=== PATIENT | male | born 1980 | race Caucasian/White ===

== ENCOUNTER 2018-02-22 16:53 | Inpatient (IN) | payer MEDICAID ==
[~2018-02-22 16:53] MED LIST: IOPAMIDOL (ISOVUE-300) 100 ML BTL ONE
[2018-02-22] MEDS ORDERED: NS 1,000 ML IV ONE (17:12)
[2018-02-22] MEDS ORDERED: ONDANSETRON 4 MG/2 ML VIAL IVP ONE (17:12)
--- NOTE | 2018-02-22 17:12 | EDPHY ---
H & P Stated Complaint: SBO Time Seen by Provider: 02/22/18 17:03 HPI/ROS: CHIEF COMPLAINT: Crohn's disease, bowel obstruction HISTORY OF PRESENT ILLNESS: The patient presents the ED with 4 days of abdominal pain, vomiting, decreased appetite, lack of bowel movement/flatus. Patient has a history of Crohn's disease status post surgery for intra- abdominal abscess in [place]. The patient is currently on Humira and sulfasalazine. The patient saw his chief communications officer who ordered a CT scan which demonstrates a reported high-grade jejunal obstruction. The patient reports that his abdominal distention and pain have actually improved fairly significantly over the past day. They have not entirely resolved. The patient denies any fever, cough or congestion. The patient denies dysuria or additional complaints. REVIEW OF SYSTEMS: A comprehensive 10 point review of systems is otherwise negative aside from elements mentioned in the history of present illness. Source: Patient - Personal History Current Tetanus/Diphtheria Vaccine: Yes Current Tetanus Diphtheria and Acellular Pertussis (TDAP): Yes - Medical/Surgical History Hx Asthma: No Hx Chronic Respiratory Disease: No Hx Diabetes: No Hx Cardiac Disease: No Hx Renal Disease: No Hx Cirrhosis: No Hx Alcoholism: No Hx HIV/AIDS: No Hx Splenectomy or Spleen Trauma: No Other PMH: fistulizing crohn's, abdominal surgery 2016 - Social History Smoking Status: Current some day smoker - Physical Exam Exam: General Appearance: Alert, no distress Eyes: Pupils equal and round no pallor or injection ENT, Mouth: Mucous membranes moist Respiratory: There are no retractions, lungs are clear to auscultation Cardiovascular: Regular rate and rhythm Gastrointestinal: Hypoactive bowel sounds, tenderness to deep palpation, no peritoneal signs Neurological: A&O, normal motor function, normal sensory exam, normal cranial nerves Skin: Warm and dry, no rashes Musculoskeletal: Neck is supple nontender Extremities: symmetrical, full range of motion Psychiatric: Patient is oriented X 3, there is no agitation Constitutional: Initial Vital Signs Temperature (C) 37.4 C 02/22/18 17:00 Heart Rate 74 02/22/18 17:00 Respiratory Rate 16 02/22/18 17:00 Blood Pressure 121/88 H 02/22/18 17:00 O2 Sat (%) 98 02/22/18 17:00 O2 Delivery Mode Room Air Allergies/Adverse Reactions: piperacillin [From Zosyn] Allergy (Verified 02/22/18 16:58) tazobactam [From Zosyn] Allergy (Verified 02/22/18 16:58) Home Medications: Medication Instructions Recorded Adderall 10 MG (*) 02/22/18 Humira 02/22/18 Hydrocodone-Acetamin 10-300 mg 02/22/18 Protonix 02/22/18 Sulfasalazine 02/22/18 Medical Decision Making - Diagnostics Imaging Results: Imaging Impressions Abdomen CT 02/22/18 16:00 Impression: 1. High-grade mid to distal small bowel obstruction involving the majority of the jejunum. 2. No evidence of appendicitis, drainable abscess, or pneumoperitoneum. Findings and recommendations given to Kalyani Winchester PA-C, at 1650 hours, on February 22, 2018. Final report concurs with initial preliminary interpretation. The patient has been taken to the Emergency Department. Findings and recommendations discussed with Emergency Department physician, Dr. Costello, at 1652 hours, on February 22, 2018. Final report concurs with initial preliminary interpretation. ED Course/Re-evaluation: The patient had an IV established. He received a L of normal saline. He received 4 mg of IV Zofran. I reviewed the results of the patient's CT scan. Consultation was made with Dr. Margaret Castle from Gastroenterology. He advises admission to the hospital and IV steroids. He recommends 40 mg of Solu-Medrol 3 times a day. Consultation is made with Dr. Saxena from the hospitalist service who will admit the patient. I reviewed the patient's laboratory studies. The patient was seen in consultation by Gastroenterology in the ED. He will be admitted to medical-surgical floor bed. Differential Diagnosis: Differential diagnosis considered includes perforation, obstruction, dehydration , metabolic abnormality, intra-abdominal abscess - Data Points Laboratory Results: Laboratory Results 02/22/18 17:15 02/22/18 17:15 02/22/18 02/22/18 17:15 17:15 WBC 14.38 10^3/uL H 10^3/uL (3.80-9.50) RBC 5.17 10^6/uL 10^6/uL (4.40-6.38) Hgb 17.0 g/dL g/dL (13.7-17.5) Hct 47.8 % % (40.0-51.0) MCV 92.5 fL fL (81.5-99.8) MCH 32.9 pg pg (27.9-34.1) MCHC 35.6 g/dL g/dL (32.4-36.7) RDW 12.2 % % (11.5-15.2) Plt Count 307 10^3/uL 10^3/uL (150-400) MPV 9.1 fL fL (8.7-11.7) Neut % (Auto) Pending Lymph % (Auto) Pending Kingfisher % (Auto) Pending Eos % (Auto) Pending Baso % (Auto) Pending Nucleat RBC Rel Count Pending Absolute Neuts (auto) Pending Absolute Lymphs (auto) Pending Absolute Monos (auto) Pending Absolute Eos (auto) Pending Absolute Basos (auto) Pending Absolute Nucleated RBC Pending Immature Gran % Pending Immature Gran # Pending Platelet Estimate Pending Sodium 137 mEq/L mEq/L (135-145) Potassium 4.0 mEq/L mEq/L (3.5-5.2) Chloride 95 mEq/L L mEq/L (97-110) Carbon Dioxide 26 mEq/l mEq/l (22-31) Anion Gap 16 mEq/L mEq/L (8-16) BUN 16 mg/dL mg/dL (7-23) Creatinine 0.9 mg/dL mg/dL (0.7-1.3) Estimated GFR > 60 Glucose 83 mg/dL mg/dL (70-100) Calcium 9.6 mg/dL mg/dL (8.5-10.4) Medications Given: Discontinued Medications Sodium Chloride (Ns) 1,000 mls @ 0 mls/hr IV EDNOW ONE; Wide Open PRN Reason: Protocol Stop: 02/22/18 17:13 Last Admin: 02/22/18 17:20 Dose: 1,000 mls Ondansetron HCl (Zofran) 4 mg IVP EDNOW ONE Stop: 02/22/18 17:13 Last Admin: 02/22/18 17:20 Dose: 4 mg Departure - Departure Disposition: [facility] Acute Clinical Impression: Bowel obstruction, Crohns disease Condition: Good
[2018-02-22 17:22] LABS: PLATELET COUNT 307 10^3/uL (150-400)
[2018-02-22] MEDS ORDERED: methylPREDNISolone SOD SUCC 40 MG/ML VIAL IVP ONE (17:44)
[2018-02-22] MEDS ORDERED: ONDANSETRON DISINTEGRATING 4 MG TAB PO PRN (17:53)
[2018-02-22] MEDS ORDERED: METOCLOPRAMIDE 10 MG TAB PO PRN (17:53)
[2018-02-22] MEDS ORDERED: PROMETHAZINE HCL 25 MG TAB PO PRN (17:53)
--- NOTE | 2018-02-22 18:09 | GCON ---
[f rep st] CONSULTATION INPATIENT CONSULTATION NOTE REFERRING PHYSICIAN: Andres Montenegro MD REASON FOR CONSULTATION: Crohn disease and obstruction. HISTORY OF PRESENT ILLNESS: Briefly, the patient is a pleasant 37-year-old male with a past medical history significant for Crohn disease. His Crohn disease has been complicated in the past by fistula and abscesses. He is currently on sulfasalazine and Humira as an outpatient. Over the last many da ys, he has been noticing increasing degree of abdominal pain associated with mild nausea, decreased f latus, and difficulty with p.o. intake. He was seen in our outpatient office today and a CAT scan wa s recommended. He underwent that CAT scan and was noted to have a jejunal obstruction described as h igh-grade. Reports no fevers, chills or sweats. He has had no bloody stool. He has had no hematemesis. His prior Crohn disease management and surgery had taken place in [place]. ALLERGIES: Zosyn. MEDICINES: Outpatient: Sulfasalazine, Protonix, Humira, Adderall, and pain therapy. PAST MEDICAL HISTORY: Includes Crohn disease. FAMILY HISTORY: Negative for colon cancer to his knowledge. SOCIAL HISTORY: He smokes cigarettes rarely. Does not use drugs. REVIEW OF SYSTEMS: A complete 10-point review was undertaken, is negative except for those details d escribed in the History of Present Illness. PHYSICAL EXAM: GENERAL: This is a well-developed male, in no apparent distress. HEENT: Pupils are equal, round, reactive to light and accommodation. His mucous membranes are moist. RESPIRATORY: R eveals lungs are clear to auscultation. CARDIOVASCULAR: Normal with regular rate and rhythm. ABDOM EN: The patient has hypoactive bowel sounds with tenderness to deep palpation, although he has no pe ritoneal signs or rebound. NEUROLOGIC: Grossly nonfocal. SKIN: Warm and dry without lesions. MUSCULOSKELETAL: Reveals no arthritis. NECK: Supple and nontender. PSYCHIATRIC: Reveals normal m ood and affect. LABORATORY: White count of 14.38, hemoglobin is 17, with hematocrit of 47.8, platelet count of 307. Basic metabolic panel is currently pending. CT scan done today at 4 p.m. reveals high-grade mid to distal small bowel obstruction involving the m ajority of the jejunum. There is no abscess or fistula. There are multiple fluid-filled dilated loo ps of small bowel. IMPRESSION AND RECOMMENDATIONS: The patient appears to have a partial obstruction of the small bowel , likely related to underlying Crohn disease. If this is related to acute inflammation and activity of Crohn disease, it may respond to steroid therapies. At this point, I recommend the patient be adm itted to the hospital, left n.p.o., and that we start directed Crohn disease therapies with IV Solu-M edrol. Pending his clinical course, we will need to consider whether surgical intervention is requir ed. Hope to avoid this. /[id number]/MODL
[2018-02-22] MEDS: D5W 1/2 NS W/ 20 KCl/L 1,000 ML IV SCH (18:18)
--- NOTE | 2018-02-22 18:51 | PDGENHP ---
History and Physical - Chief Complaint Acute abdominal pain - History of Present Illness Primary care provider: Dr. Lizzeth Painting Primary medical advisor: Dr. Keon Saucedo HPI: 37-year-old male presenting with acute abdominal pain located in the right mid abdomen with associated nausea vomiting anorexia and constipation with onset of symptoms 4 days prior and constant duration thereafter. Patient reports that [place] has somewhat alleviated his symptoms but a become more pervasive over the last 3 days, with no bowel movement and no passage of gas during that interval. He has had very minimal oral intake as oral intake does seem to exacerbate his nausea and vomiting. The patient is unable to identify any clearly precipitating event prior to his onset of symptoms. The day of presentation, the patient was seen by physician property management assistant at [facility], an abdominal CT scan demonstrated high-grade bowel obstruction. He was advised to present to the emergency department. History Information - Allergies/Home Medication List Allergies/Adverse Reactions: piperacillin [From Zosyn] Allergy (Verified 02/22/18 18:30) tazobactam [From Zosyn] Allergy (Verified 02/22/18 18:30) Home Medications: Adalimumab [Humira] 0 mg INJ TH 02/22/18 [Last Taken 02/16/18] Dextroamphetamine/Amphetamine [Adderall 30 mg Tablet] 30 mg PO BID@09,13 PRN 12/11 [Last Taken 02/18/18] Herbals/Supplements -Info Only 1 ea PO DAILY 02/22/18 [Last Taken 02/18/18] Hydrocodone/Acetaminophen [[place] 5/325 (*)] 1 - 2 tab PO Q6H PRN 02/22/18 [Last Taken 02/22/18 05:00] Pantoprazole Sodium [Protonix 40mg (*)] 40 mg PO DAILY 02/22/18 [Last Taken 12/11] sulfaSALAzine [Azulfidine 500 MG (*)] 1,000 mg PO QID 02/22/18 [Last Taken 02/18] I have personally reviewed and updated: family history, medical history, social history, surgical history - Past Medical History Crohn's Disease (On weekly Humira, no recent steroids) Additional medical history: 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, surgical management as well as subsequent IR drainage, occurred at [facility] in [place] - Surgical History Additional surgical history: 2016 bowel surgery - Family History Additional family history: No venous thromboembolism, no inflammatory bowel disease - Social History Smoking Status: Current some day smoker Alcohol Use: Occasionally Drug Use: None Additional social history: Independent in ADLs Review of Systems Review of Systems: ROS: 10pt was reviewed & negative except for what was stated in HPI & below Gastrointestinal: Reports: vomitting, abdominal pain, constipation, nausea Physical Exam Physical Exam: Temp Pulse Resp BP Pulse Ox 37.2 C 72 16 126/81 H 94 02/22/18 18:32 02/22/18 18:32 02/22/18 18:32 02/22/18 18:32 02/22/18 18:32 Constitutional: no apparent distress, appears nourished, not in pain, uncomfortable Eyes: PERRL, anicteric sclera, EOMI Ears, Nose, Mouth, Throat: moist mucous membranes, hearing normal, ears appear normal, no oral mucosal ulcers Cardiovascular: regular rate and rhythym, no murmur, rub, or gallop, No edema Respiratory: no respiratory distress, no rales or rhonchi, clear to auscultation Gastrointestinal: tenderness (Right mid abdomen), No normoactive bowel sounds ( Hypoactive bowel sounds), No guarding, No distension Skin: warm, other (Well-healed abdominal incision site) Neurologic: AAOx3, No weakness, No facial droop Psychiatric: interacting appropriately, not anxious, not encephalopathic, thought process linear Lab Data & Imaging Review 02/22/18 17:15 02/22/18 17:15 WBC 14.38 10^3/uL (3.80-9.50) H 02/22/18 17:15 RBC 5.17 10^6/uL (4.40-6.38) 02/22/18 17:15 Hgb 17.0 g/dL (13.7-17.5) 02/22/18 17:15 Hct 47.8 % (40.0-51.0) 02/22/18 17:15 MCV 92.5 fL (81.5-99.8) 02/22/18 17:15 MCH 32.9 pg (27.9-34.1) 02/22/18 17:15 MCHC 35.6 g/dL (32.4-36.7) 02/22/18 17:15 RDW 12.2 % (11.5-15.2) 02/22/18 17:15 Plt Count 307 10^3/uL (150-400) 02/22/18 17:15 MPV 9.1 fL (8.7-11.7) 02/22/18 17:15 Sodium 137 mEq/L (135-145) 02/22/18 17:15 Potassium 4.0 mEq/L (3.5-5.2) 02/22/18 17:15 Chloride 95 mEq/L (97-110) L 02/22/18 17:15 Carbon Dioxide 26 mEq/l (22-31) 02/22/18 17:15 Anion Gap 16 mEq/L (8-16) 02/22/18 17:15 BUN 16 mg/dL (7-23) 02/22/18 17:15 Creatinine 0.9 mg/dL (0.7-1.3) 02/22/18 17:15 Estimated GFR > 60 02/22/18 17:15 Glucose 83 mg/dL (70-100) 02/22/18 17:15 Calcium 9.6 mg/dL (8.5-10.4) 02/22/18 17:15 Visualized and Interpreted imaging results: Yes Interpretation: CT of the abdomen demonstrating no abscess, no appendicitis, jejunal dilation with high-grade small-bowel obstruction in the mid to distal small bowel Assessment & Plan Assessment: 37-year-old male presents with acute small-bowel obstruction in the setting of Crohn's disease and possible acute flare Plan: 1. Small bowel obstruction. Acute, new problem this provider, further workup is indicated. Evidenced by high grade small bowel obstruction on CT of the abdomen with hypoactive bowel sounds, no passage of stool or flatus x3 days and symptomatic intolerance of oral intake -is possible that his small-bowel obstruction is secondary to either acute Crohn 's flare or bowel adhesions following a 2016 complicated intra-abdominal abscess surgery -ongoing abdominal reassessments, currently does not have a surgical abdomen -bowel rest, IV fluids, monitor serum electrolytes -supportive care with pain medications, antiemetics with Reglan first-line, Zofran second-line, Phenergan 3rd line -hold on surgical consultation at this time, but if patient's abdominal symptoms of all than worsen, low threshold to get surgical eval 2. Possible acute Crohn's disease flare. Elevated CRP 17 on evaluation of outside records including 02/21/2018 labs demonstrating new leukocytosis compared to labs from 01/26/2018 and no recent use of steroids -discussed with Dr. Marvin Montenegro, he has reported that the patient was seen in consultation by Dr. Margaret Castle, consultation reviewed, will initiate methylprednisone 40 mg q.8 hours and gauge effect -will continue Humira, patient's brother to bring in and patient will take his own home dosage -continue mesalamine Diet. NPO with IV fluids Prophylaxis. High risk patient given immobility and underlying autoimmune condition, Lovenox 40 Code. Full, brother is MD [employer] Disposition. Anticipated discharge uncertain this time, anticipated length stay is greater than 48 hr for reasonable medical necessity including acute small bowel obstruction with possible acute Crohn's disease flare being all inpatient criteria per [facility] Guidelines.
[2018-02-22] MEDS: sulfaSALAzine 500 MG TAB PO SCH (20:29)
[2018-02-22] MEDS: METOCLOPRAMIDE 10 MG/2 ML VIAL IVP PRN (23:29)
[2018-02-23] MEDS: methylPREDNISolone SOD SUCC 40 MG/ML VIAL IVP SCH ×3 (01:44→17:53)
[2018-02-23] MEDS: D5W 1/2 NS W/ 20 KCl/L 1,000 ML IV SCH ×2 (01:45→19:00)
[2018-02-23] MEDS: diphenhydrAMINE 25 MG CAP PO PRN (01:46)
[2018-02-23 04:59] LABS: PLATELET COUNT 268 10^3/uL (150-400)
[2018-02-23] MEDS: sulfaSALAzine 500 MG TAB PO SCH ×4 (05:21→20:17)
[2018-02-23] MEDS ORDERED: Herbals/Supplements -Info Only PO SCH (09:00)
[2018-02-23] MEDS ORDERED: ADDERALL 20 MG TAB PO PRN (09:00)
[2018-02-23] MEDS: PANTOPRAZOLE SODIUM 40 MG TAB PO SCH (09:08)
[2018-02-23] MEDS: ENOXAPARIN 40 MG/0.4 ML SYR SC SCH ×2 (09:21→11:08)
--- NOTE | 2018-02-23 09:52 | SOAPPROG ---
SOAP Progress Note Assessment/Plan: Assessment: 1. Crohns - complicated by obstruction, minimal improvement overnight - prior hx of abscess and fistula - n ohx of bowel resection Plan: 1. Crohns - continue npo x sips/chips/meds - continue IV solumedrol - given home dose humira today (pt has medication with him) - KUB to follow - monitor next 48-72hrs, and hope for improvement - will follow 02/23/18 09:46 Subjective: CC: crohns with obsturction S: no flatus overnight less pain today no appetite no fever no vomiting Objective: Vital Signs Temp Pulse Resp BP Pulse Ox 36.9 C 65 16 98/72 L 95 02/23/18 09:01 02/23/18 09:01 02/23/18 09:01 02/23/18 09:01 02/23/18 09:01 Laboratory Results 02/23/18 04:16 02/23/18 04:16 Physical Exam - Physical Exam General Appearance: alert EENT: PERRL/EOMI Neck: full range of motion Respiratory: lungs clear Cardiac/Chest: normal peripheral pulses, regular rate, rhythm Abdomen: normal bowel sounds, soft, No non-tender Skin: normal color Extremities: normal range of motion Neuro/Psych: no motor/sensory deficits ICD10 Worksheet Patient Problems: Problems Problem Status Onset Bowel obstruction Acute Crohns disease Acute
[2018-02-23] MEDS ORDERED: ADALIMUMAB 40 MG/0.8 ML INJ SC SCH ×2 (10:13→12:00)
--- NOTE | 2018-02-23 10:33 | PDMN ---
Medical Necessity Medical necessity: est los>2mn for acute SBO w/symptomatic intolerance of oral intake, and no stool or flatus x 3 days, r/t possible acute Crohn's flare vs bowel adhesions; admit for IVF, IV steroids, NPO; hx bowel fistula and abscess; per order and H&P 02/22/18
--- NOTE | 2018-02-23 10:47 | ASMTCMCOM ---
CM Note CM Note Notes: Spoke w/RN, anticipate pt will dc home w/support of family when medically stable, per RN, pt has supportive brother and mother. CM available for any changes. DC Plan: Independent Date Signed: 02/23/2018 10:46 AM Electronically Signed By:Margoth Doss RN
--- NOTE | 2018-02-23 13:36 | HOSPPROG ---
Hospitalist Progress Note Assessment/Plan: 37-year-old male presents with acute small-bowel obstruction in the setting of Crohn's disease and acute flare. First encounter, chart reviewed. Plan: 1. Small bowel obstruction. -ambulating, passing gas -is possible that his small-bowel obstruction is secondary to either acute Crohn 's flare or bowel adhesions following a 2016 complicated intra-abdominal abscess surgery -apprciate GI consult - continue IV solumedrol - given home dose humira today (pt has medication with him) - KUB to follow - monitor next 48-72hrs, and hope for improvement -bowel rest, IV fluids, monitor serum electrolytes -supportive care with pain medications, antiemetics with Reglan first-line, Zofran second-line, Phenergan 3rd line 2. Possible acute Crohn's disease flare. -Elevated CRP 17 -continue mesalamine Diet. NPO with IV fluids.Sips/chips Prophylaxis. Lovenox 40 Code. Full, brother is MD CONTE Disposition. Anticipated discharge uncertain this time, anticipated length stay is greater than 48 hr for reasonable medical necessity including acute small bowel obstruction with possible acute Crohn's disease flare Subjective: Feeling a bit better after walking. Still having pain and distention. Objective: Vital Signs Temp Pulse Resp BP Pulse Ox 37.2 C 77 16 116/73 99 02/23/18 12:15 02/23/18 12:15 02/23/18 12:15 02/23/18 12:15 02/23/18 12:15 Laboratory Results 02/23/18 04:16 02/23/18 04:16 - Physical Exam Constitutional: no apparent distress, appears nourished, uncomfortable Eyes: PERRL, anicteric sclera, EOMI Ears, Nose, Mouth, Throat: moist mucous membranes, hearing normal, ears appear normal Cardiovascular: regular rate and rhythym, no murmur, rub, or gallop, No JVD Respiratory: no respiratory distress, no rales or rhonchi, clear to auscultation Gastrointestinal: tenderness, distension, No ascites, No guarding Skin: warm, normal color, No mottled Musculoskeletal: normal joint ROM, no joint effusions, generalized weakness Neurologic: AAOx3 Psychiatric: interacting appropriately, not anxious, not encephalopathic, thought process linear ICD10 Worksheet Patient Problems: Problems Problem Status Onset Bowel obstruction Acute Crohns disease Acute
[2018-02-23] MEDS: METOCLOPRAMIDE 10 MG/2 ML VIAL IVP PRN (16:13)
[2018-02-23] MEDS: HYDROmorphONE/DILAUDID 2 MG TAB PO PRN (17:52)
[2018-02-23] MEDS: ONDANSETRON 4 MG/2 ML VIAL IVP PRN (17:53)
[2018-02-23] MEDS: MELATONIN 3 MG TAB PO SCH (21:50)
[2018-02-24] MEDS: methylPREDNISolone SOD SUCC 40 MG/ML VIAL IVP SCH ×3 (02:15→17:29)
[2018-02-24] MEDS: sulfaSALAzine 500 MG TAB PO SCH ×4 (03:46→20:30)
[2018-02-24] MEDS: ONDANSETRON 4 MG/2 ML VIAL IVP PRN ×2 (04:10→18:39)
[2018-02-24] MEDS: D5W 1/2 NS W/ 20 KCl/L 1,000 ML IV SCH (04:10)
[2018-02-24] MEDS: PANTOPRAZOLE SODIUM 40 MG TAB PO SCH (09:00)
[2018-02-24] MEDS: ENOXAPARIN 40 MG/0.4 ML SYR SC SCH (09:00)
--- NOTE | 2018-02-24 10:40 | HOSPPROG ---
Hospitalist Progress Note Assessment/Plan: 37-year-old male presents with acute small-bowel obstruction in the setting of Crohn's disease and acute flare. Plan: 1. Small bowel obstruction. -ambulating, passing gas -is possible that his small-bowel obstruction is secondary to either acute Crohn 's flare or bowel adhesions following a 2016 complicated intra-abdominal abscess surgery -appreciate GI consult -continue IV solumedrol -given home dose humira today (pt has medication with him) -monitor next 48-72hrs, and hope for improvement -bowel rest, IV fluids, monitor serum electrolytes -supportive care with pain medications, antiemetics with Reglan first-line, Zofran second-line, Phenergan 3rd line 2. Possible acute Crohn's disease flare. -Elevated CRP 17 -continue mesalamine Diet. NPO with IV fluids. Sips/chips Prophylaxis. Lovenox 40 Code. Full, brother is MD [employer] Disposition. Anticipated discharge uncertain this time, anticipated length stay is greater than 48 hr for reasonable medical necessity including acute small bowel obstruction with possible acute Crohn's disease flare Subjective: Feeling a bit better. Still not ready for food. Objective: Vital Signs Temp Pulse Resp BP Pulse Ox 36.7 C 68 14 97/65 L 95 02/24/18 07:38 02/24/18 07:38 02/24/18 07:38 02/24/18 07:38 02/24/18 07:38 Laboratory Results 02/23/18 04:16 02/23/18 04:16 02/23/18 02/24/18 02/25/18 05:59 05:59 05:59 Intake Total 2800 Output Total 3670 Balance -870 - Physical Exam Constitutional: appears nourished, uncomfortable Eyes: PERRL, anicteric sclera Ears, Nose, Mouth, Throat: moist mucous membranes, hearing normal Cardiovascular: No JVD, No edema Respiratory: no respiratory distress, no rales or rhonchi Gastrointestinal: tenderness, No ascites Skin: warm, normal color Musculoskeletal: full muscle strength, no joint effusions Neurologic: AAOx3 Psychiatric: interacting appropriately, not anxious, not encephalopathic ICD10 Worksheet Patient Problems: Problems Problem Status Onset Bowel obstruction Acute Crohns disease Acute
[2018-02-24] MEDS: D5W 1/2 NS 1,000 ML IV SCH ×2 (10:45→17:40)
--- NOTE | 2018-02-24 16:01 | SOAPPROG ---
SOAP Progress Note Assessment/Plan: Assessment: 1. Crohn's - complicated by obstruction - continued modest improvement - little to no flatus - no BM yet Plan: 1. Crohn's - ok to advance to clear liquids. dc if has increased pain, etc - continue IV solumedrol - given home dose humira today (pt has medication with him) - will follow, Dr. Gibson to assume rounds at 5p at [facility] 02/24/18 15:57 Subjective: CC: abd pain S: slow improvement no flatus less pain no nausea no vomiting Objective: Vital Signs Temp Pulse Resp BP Pulse Ox 36.8 C 54 L 12 120/77 99 02/24/18 15:24 02/24/18 15:24 02/24/18 15:24 02/24/18 15:24 02/24/18 15:24 Laboratory Results 02/23/18 04:16 02/23/18 04:16 02/23/18 02/24/18 02/25/18 05:59 05:59 05:59 Intake Total 2800 Output Total 3670 1900 Balance -870 -1900 Physical Exam - Physical Exam General Appearance: WD/WN, alert EENT: PERRL/EOMI Respiratory: lungs clear Cardiac/Chest: normal peripheral pulses, regular rate, rhythm Abdomen: normal bowel sounds Skin: normal color Neuro/Psych: no motor/sensory deficits ICD10 Worksheet Patient Problems: Problems Problem Status Onset Bowel obstruction Acute Crohns disease Acute
--- NOTE | 2018-02-24 16:12 | ASMTCMCOM ---
CM Note CM Note Notes: Plan remains the same, pt will dc independent when medically stable. Has support of mother and brother, CM available for any changes. DC Plan: Independent Date Signed: 02/24/2018 04:11 PM Electronically Signed By:Margoth Doss RN
[2018-02-24] MEDS: METOCLOPRAMIDE 10 MG/2 ML VIAL IVP PRN (17:29)
[2018-02-24] MEDS: HYDROmorphONE/DILAUDID 2 MG/ML INJ IVP PRN (18:39)
[2018-02-24] MEDS: MELATONIN 3 MG TAB PO SCH (21:16)
[2018-02-25] MEDS: HYDROmorphONE/DILAUDID 2 MG/ML INJ IVP PRN ×3 (00:45→21:21)
[2018-02-25] MEDS: ONDANSETRON 4 MG/2 ML VIAL IVP PRN ×3 (00:46→15:20)
[2018-02-25] MEDS: D5W 1/2 NS 1,000 ML IV SCH ×3 (02:16→21:22)
[2018-02-25] MEDS: methylPREDNISolone SOD SUCC 40 MG/ML VIAL IVP SCH ×3 (02:17→18:00)
[2018-02-25] MEDS: sulfaSALAzine 500 MG TAB PO SCH ×5 (05:59→21:25)
[2018-02-25] MEDS: ENOXAPARIN 40 MG/0.4 ML SYR SC SCH (08:59)
[2018-02-25] MEDS: PANTOPRAZOLE SODIUM 40 MG TAB PO SCH (08:59)
--- NOTE | 2018-02-25 11:04 | SOAPPROG ---
SOAP Progress Note Assessment/Plan: Assessment: SBO improving, tolerating small amount of liquids. C/o some nausea with drinking. Plan: 1. Continue on IV solumedrol 2. Recheck [address] abdominal x-ray today 3. Clear liquids as tolerated 02/25/18 11:01 Subjective: CC: SBO, small bowel crohns disease Passing air, still not taking a lot of PO liquids, C/o nausea with drinking liquids. Objective: Vital Signs Temp Pulse Resp BP Pulse Ox 36.8 C 50 L 12 104/68 96 02/25/18 08:00 02/25/18 08:00 02/25/18 08:00 02/25/18 08:00 02/25/18 08:00 Laboratory Results 02/23/18 04:16 02/23/18 04:16 02/24/18 02/25/18 02/26/18 05:59 05:59 05:59 Intake Total 2800 1200 250 Output Total 3670 3100 100 Balance -870 -1900 150 Generic Name Dose Route Start Last Admin Trade Name Freq PRN Reason Stop Dose Admin Acetaminophen 650 mg 02/22/18 17:53 Tylenol PO 08/21/18 17:52 Q4HRS PRN Pain, Mild/Fever, Can Take PO Adalimumab 40 mg 02/23/18 10:13 02/23/18 11:05 Humira SC 08/22/18 10:12 40 mg Th JYOTSNA Administration Amphetamine/Dextroamphetamine 30 mg 02/23/18 09:00 Adderall PO 08/22/18 08:59 BID@0900,1300 PRN ATTENTION Diphenhydramine HCl 25 - 50 mg 02/22/18 23:38 02/23/18 01:46 Benadryl PO 08/21/18 23:37 25 mg Q6HRS PRN Administration Itching Enoxaparin Sodium 40 mg 02/23/18 09:00 02/25/18 08:59 Lovenox SC 08/22/18 08:59 40 mg DAILY JYOTSNA Administration Hydromorphone HCl 2 mg 02/22/18 17:53 02/23/18 17:52 Dilaudid PO 03/04/18 17:52 2 mg Q4HRS PRN Administration Pain, Severe Able to Take PO Hydromorphone HCl 0.2 - 1 mg 02/22/18 17:53 02/25/18 05:29 Dilaudid IVP 03/04/18 17:52 0.5 mg Q2 PRN Administration Pain, Severe Unable to Take PO Dextrose/Sodium Chloride 1,000 mls @ 100 mls/hr 02/24/18 11:00 02/25/18 02:16 D5w 1/2 Ns IV 08/23/18 10:59 1,000 mls CONT JYOTSNA Administration Melatonin 6 mg 02/23/18 21:00 02/24/18 21:16 Melatonin PO 08/22/18 20:59 6 mg HS JYOTSNA Administration Methylprednisolone Sodium Succinate 40 mg 02/23/18 02:00 02/25/18 10:04 Solu-Medrol IVP 08/22/18 01:59 40 mg Q8H JYOTSNA Administration Metoclopramide HCl 10 mg 02/22/18 17:53 Reglan PO 08/21/18 17:52 Q6HRS PRN Nausea/Vomiting, Use 1st Metoclopramide HCl 10 mg 02/22/18 17:53 02/24/18 17:29 Reglan Injection IVP 08/21/18 17:52 10 mg Q6HRS PRN Administration Nausea/Vomiting, Can't Take PO Ondansetron HCl 4 mg 02/22/18 17:53 02/25/18 10:11 Zofran IVP 08/21/18 17:52 4 mg Q4HRS PRN Administration Nausea/Vomiting, Can't Take PO Ondansetron HCl 4 mg 02/22/18 17:53 Zofran Odt PO 08/21/18 17:52 Q4HRS PRN Nausea/Vomiting, Use 2nd Pantoprazole Sodium 40 mg 02/23/18 09:00 02/25/18 08:59 Protonix PO 08/22/18 08:59 40 mg DAILY JYOTSNA Administration Promethazine HCl 6.25 - 12.5 mg 02/22/18 17:53 Phenergan IVP 08/21/18 17:52 Q6HRS PRN Nausea/Vomiting, Use 3rd Promethazine HCl 12.5 - 25 mg 02/22/18 17:53 Phenergan PO 08/21/18 17:52 Q6HRS PRN Nausea/Vomiting, Use 3rd Sulfasalazine 1,000 mg 02/22/18 21:00 02/25/18 05:59 Azulfidine PO 03/24/18 20:59 Not Given QID JYOTSNA Discontinued Medications Generic Name Dose Route Start Last Admin Trade Name Geovanna PRN Reason Stop Dose Admin Adalimumab 40 mg 02/23/18 12:00 Humira SC 08/22/18 11:59 Th JYOTSNA Sodium Chloride 1,000 mls @ 0 mls/hr 02/22/18 17:12 02/22/18 17:20 Ns IV 02/22/18 17:13 1,000 mls EDNOW ONE Administration Protocol Wide Open Potassium Chloride/Dextrose/Sod Cl 1,000 mls @ 150 mls/hr 02/22/18 18:00 02/08 04:10 D5w 1/2 Ns W/ 20 Kcl/L IV 08/21/18 17:59 1,000 mls CONT JYOTSNA Administration Iopamidol Confirm 02/22/18 15:54 Isovue-300 Administered 02/22/18 15:55 Dose 100 ml .ROUTE .STK-MED ONE Methylprednisolone Sodium Succinate 40 mg 02/22/18 17:44 02/22/18 18:04 Solu-Medrol IVP 02/22/18 17:45 40 mg EDNOW ONE Administration Ondansetron HCl 4 mg 02/22/18 17:12 02/22/18 17:20 Zofran IVP 02/22/18 17:13 4 mg EDNOW ONE Administration Physical Exam - Physical Exam General Appearance: alert, no apparent distress Respiratory: lungs clear, normal breath sounds Cardiac/Chest: regular rate, rhythm Abdomen: normal bowel sounds, soft, distended (slight distention) Skin: normal color, warm/dry Neuro/Psych: alert, normal mood/affect, oriented x 3 ICD10 Worksheet Patient Problems: Problems Problem Status Onset Bowel obstruction Acute Crohns disease Acute
--- NOTE | 2018-02-25 12:23 | HOSPPROG ---
Hospitalist Progress Note Assessment/Plan: 37-year-old male presents with acute small-bowel obstruction in the setting of Crohn's disease and acute flare. D/W Dr Gibson Plan: 1. Small bowel obstruction. -per xray today -ambulating -appreciate GI consult -monitor next 48-72hrs, and hope for improvement -bowel rest, IV fluids, monitor serum electrolytes -supportive care with pain medications, antiemetics 2. Possible acute Crohn's disease flare. -Elevated CRP 17 -continue mesalamine -continue IV solumedrol -given home dose humira Diet. clear liquids with IV fluids. Sips/chips Prophylaxis. Lovenox 40 Code. Full, brother is MD CONTE Disposition. Anticipated discharge uncertain this time, anticipated length stay is greater than 48 hr for reasonable medical necessity including acute small bowel obstruction with possible acute Crohn's disease flare Subjective: Not feeling ting. Still some nausea. Not hungry. Objective: Vital Signs Temp Pulse Resp BP Pulse Ox 36.8 C 50 L 12 104/68 96 02/25/18 08:00 02/25/18 08:00 02/25/18 08:00 02/25/18 08:00 02/25/18 08:00 Laboratory Results 02/23/18 04:16 02/23/18 04:16 02/24/18 02/25/18 02/26/18 05:59 05:59 05:59 Intake Total 2800 1200 250 Output Total 3670 3100 100 Balance -870 -1900 150 - Physical Exam Constitutional: appears nourished, uncomfortable, No obese Eyes: PERRL, anicteric sclera, EOMI Ears, Nose, Mouth, Throat: moist mucous membranes, hearing normal, ears appear normal Cardiovascular: regular rate and rhythym, No JVD, No edema Respiratory: no respiratory distress, no rales or rhonchi, clear to auscultation Gastrointestinal: tenderness, distension, No normoactive bowel sounds, No ascites Skin: warm, normal color, No mottled Musculoskeletal: full muscle strength, normal joint ROM, no joint effusions Neurologic: AAOx3 Psychiatric: interacting appropriately, not anxious, not encephalopathic, thought process linear ICD10 Worksheet Patient Problems: Problems Problem Status Onset Bowel obstruction Acute Crohns disease Acute
[2018-02-25] MEDS: PROMETHAZINE HCL 25 MG/ML INJ IVP PRN (15:50)
--- NOTE | 2018-02-25 18:36 | HOSPPROG ---
Hospitalist Progress Note Assessment/Plan: Called bedside for 500cc dark green emesis. He has only taken a minimal amount of Gatorade in today. I spoke with Dr. Gibson who agrees that NG would be of benefit, but patient hesitant. If has recurrent episode, will place NG. Objective: Vital Signs Temp Pulse Resp BP Pulse Ox 37 C 59 L 16 122/85 H 98 02/25/18 15:13 02/25/18 15:13 02/25/18 15:13 02/25/18 15:13 02/25/18 15:13 Laboratory Results 02/23/18 04:16 02/23/18 04:16 02/24/18 02/25/18 02/26/18 05:59 05:59 05:59 Intake Total 2800 1200 1410 Output Total 3670 3100 2250 Balance -870 -1900 -840 ICD10 Worksheet Patient Problems: Problems Problem Status Onset Bowel obstruction Acute Crohns disease Acute
[2018-02-25] MEDS: MELATONIN 3 MG TAB PO SCH (21:22)
[2018-02-26] MEDS: HYDROmorphONE/DILAUDID 2 MG/ML INJ IVP PRN (02:23)
[2018-02-26] MEDS: methylPREDNISolone SOD SUCC 40 MG/ML VIAL IVP SCH ×2 (02:24→10:08)
[2018-02-26] MEDS: sulfaSALAzine 500 MG TAB PO SCH ×4 (04:57→20:07)
[2018-02-26] MEDS: D5W 1/2 NS 1,000 ML IV SCH ×2 (07:09→16:58)
[2018-02-26] MEDS: PANTOPRAZOLE SODIUM 40 MG VIAL IVP SCH (10:09)
--- NOTE | 2018-02-26 10:10 | SOAPPROG ---
SOAP Progress Note Assessment/Plan: Assessment: Had nausea and vomiting last night. Repeat [address] way yesterday with persistent high grade SBO. Review of CT scan and prior colonoscopy report I suspect there is more of an adhesive component to SBO rather than inflammatory. Plan: 1. NG tube for decompression 2. Check film after tube placement and again in morning 3. Continue supportive care Subjective: CC: SBO Had nausea and vomiting last night. still with abdominal distention Objective: Vital Signs Temp Pulse Resp BP Pulse Ox 36.9 C 54 L 12 110/73 98 02/26/18 08:00 02/26/18 08:00 02/26/18 08:00 02/26/18 08:00 02/26/18 08:00 Laboratory Results 02/23/18 04:16 02/23/18 04:16 02/25/18 02/26/18 02/27/18 05:59 05:59 05:59 Intake Total 1200 2510 Output Total 3100 2250 300 Balance -1900 260 -300 Generic Name Dose Route Start Last Admin Trade Name Ulisesq PRN Reason Stop Dose Admin Acetaminophen 650 mg 02/22/18 17:53 Tylenol PO 08/21/18 17:52 Q4HRS PRN Pain, Mild/Fever, Can Take PO Adalimumab 40 mg 02/23/18 10:13 02/23/18 11:05 Humira SC 08/22/18 10:12 40 mg Th JYOTSNA Administration Amphetamine/Dextroamphetamine 30 mg 02/23/18 09:00 Adderall PO 08/22/18 08:59 BID@0900,1300 PRN ATTENTION Diphenhydramine HCl 25 - 50 mg 02/22/18 23:38 02/23/18 01:46 Benadryl PO 08/21/18 23:37 25 mg Q6HRS PRN Administration Itching Enoxaparin Sodium 40 mg 02/23/18 09:00 02/25/18 08:59 Lovenox SC 08/22/18 08:59 40 mg DAILY JYOTSNA Administration Hydromorphone HCl 2 mg 02/22/18 17:53 02/23/18 17:52 Dilaudid PO 03/04/18 17:52 2 mg Q4HRS PRN Administration Pain, Severe Able to Take PO Hydromorphone HCl 0.2 - 1 mg 02/22/18 17:53 02/26/18 02:23 Dilaudid IVP 03/04/18 17:52 0.5 mg Q2 PRN Administration Pain, Severe Unable to Take PO Dextrose/Sodium Chloride 1,000 mls @ 100 mls/hr 02/24/18 11:00 02/26/18 07:09 D5w 1/2 Ns IV 08/23/18 10:59 1,000 mls CONT JYOTSNA Administration Melatonin 6 mg 02/23/18 21:00 02/25/18 21:22 Melatonin PO 08/22/18 20:59 6 mg HS JYOTSNA Administration Methylprednisolone Sodium Succinate 40 mg 02/23/18 02:00 02/26/18 10:08 Solu-Medrol IVP 08/22/18 01:59 40 mg Q8H JYOTSNA Administration Metoclopramide HCl 10 mg 02/22/18 17:53 Reglan PO 08/21/18 17:52 Q6HRS PRN Nausea/Vomiting, Use 1st Metoclopramide HCl 10 mg 02/22/18 17:53 02/24/18 17:29 Reglan Injection IVP 08/21/18 17:52 10 mg Q6HRS PRN Administration Nausea/Vomiting, Can't Take PO Ondansetron HCl 4 mg 02/22/18 17:53 02/25/18 15:20 Zofran IVP 08/21/18 17:52 4 mg Q4HRS PRN Administration Nausea/Vomiting, Can't Take PO Ondansetron HCl 4 mg 02/22/18 17:53 Zofran Odt PO 08/21/18 17:52 Q4HRS PRN Nausea/Vomiting, Use 2nd Pantoprazole Sodium 40 mg 02/26/18 09:45 02/26/18 10:09 Protonix IVP 08/25/18 09:44 40 mg DAILY JYOTSNA Administration Promethazine HCl 6.25 - 12.5 mg 02/22/18 17:53 02/25/18 15:50 Phenergan IVP 08/21/18 17:52 12.5 mg Q6HRS PRN Administration Nausea/Vomiting, Use 3rd Promethazine HCl 12.5 - 25 mg 02/22/18 17:53 Phenergan PO 08/21/18 17:52 Q6HRS PRN Nausea/Vomiting, Use 3rd Sulfasalazine 1,000 mg 02/22/18 21:00 02/26/18 04:57 Azulfidine PO 03/24/18 20:59 Not Given QID JYOTSNA Discontinued Medications Generic Name Dose Route Start Last Admin Trade Name Geovanna PRN Reason Stop Dose Admin Adalimumab 40 mg 02/23/18 12:00 Humira SC 08/22/18 11:59 Th JYOTSNA Sodium Chloride 1,000 mls @ 0 mls/hr 02/22/18 17:12 02/22/18 17:20 Ns IV 02/22/18 17:13 1,000 mls EDNOW ONE Administration Protocol Wide Open Potassium Chloride/Dextrose/Sod Cl 1,000 mls @ 150 mls/hr 02/22/18 18:00 02/08 04:10 D5w 1/2 Ns W/ 20 Kcl/L IV 08/21/18 17:59 1,000 mls CONT JYOTSNA Administration Iopamidol Confirm 02/22/18 15:54 Isovue-300 Administered 02/22/18 15:55 Dose 100 ml .ROUTE .STK-MED ONE Methylprednisolone Sodium Succinate 40 mg 02/22/18 17:44 02/22/18 18:04 Solu-Medrol IVP 02/22/18 17:45 40 mg EDNOW ONE Administration Ondansetron HCl 4 mg 02/22/18 17:12 02/22/18 17:20 Zofran IVP 02/22/18 17:13 4 mg EDNOW ONE Administration Pantoprazole Sodium 40 mg 02/23/18 09:00 02/25/18 08:59 Protonix PO 08/22/18 08:59 40 mg DAILY JYOTSNA Administration Physical Exam - Physical Exam General Appearance: alert, no apparent distress Respiratory: lungs clear, normal breath sounds Cardiac/Chest: regular rate, rhythm Abdomen: distended, other (hypoactive BS, midline scar) Skin: normal color, warm/dry Extremities: non-tender Neuro/Psych: alert, normal mood/affect ICD10 Worksheet Patient Problems: Problems Problem Status Onset Bowel obstruction Acute Crohns disease Acute
[2018-02-26] MEDS: PANTOPRAZOLE SODIUM 40 MG TAB PO SCH (10:17)
[2018-02-26] MEDS: HYDROmorphone HCL/NS 0.5 MG/ML SYR IVP PRN ×3 (11:04→16:17)
[2018-02-26] MEDS: ENOXAPARIN 40 MG/0.4 ML SYR SC SCH (11:06)
--- NOTE | 2018-02-26 11:22 | PDGENHP ---
History and Physical - Chief Complaint SBO - History of Present Illness 37yo M diagnosed with Crohns in 2016 admitted with SBO. Briefly, was diagnosed in 2016 when RLQ pain turned out to be likely SB fistula and abscess. Requires surgery at that time for washout, did not have any resection per patient report. Subsequently had addl recurrence of RLQ abscess 4mo later which was treated with perc drain. At any rate, had c-scope which showed likely Crohn's, has been on humira weekly since then and doing well. This episode has been different, pain bloating and nausea with vomiting began day before admission. Here, has been on steroids and states that his abd pain waxes and wanes, currently is in LUQ, 3/10 in intensity, colicky, better with medications. Vomited aggressively last night and feels much better since then. Still passing flatus, has some mucus occasionally. Denies fevers or chills. History Information - Allergies/Home Medication List Allergies/Adverse Reactions: piperacillin [From Zosyn] Allergy (Verified 02/22/18 18:30) tazobactam [From Zosyn] Allergy (Verified 02/22/18 18:30) Home Medications: Adalimumab [Humira] 0 mg INJ TH 02/22/18 [Last Taken 02/16/18] Dextroamphetamine/Amphetamine [Adderall 30 mg Tablet] 30 mg PO BID@09,13 PRN 12/11 [Last Taken 02/18/18] Herbals/Supplements -Info Only 1 ea PO DAILY 02/22/18 [Last Taken 02/18/18] Hydrocodone/Acetaminophen [[place] 5/325 (*)] 1 - 2 tab PO Q6H PRN 02/22/18 [Last Taken 02/22/18 05:00] Pantoprazole Sodium [Protonix 40mg (*)] 40 mg PO DAILY 02/22/18 [Last Taken 12/11] sulfaSALAzine [Azulfidine 500 MG (*)] 1,000 mg PO QID 02/22/18 [Last Taken 02/18] I have personally reviewed and updated: family history, medical history, social history, surgical history - Past Medical History Crohn's Disease (On weekly Humira, no recent steroids) Additional medical history: 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, surgical management as well as subsequent IR drainage, occurred at [facility] in [place] - Surgical History Additional surgical history: 2016 bowel surgery - Family History Additional family history: No venous thromboembolism, no inflammatory bowel disease - Social History Smoking Status: Current some day smoker Alcohol Use: Occasionally Drug Use: None Additional social history: Independent in ADLs Review of Systems Review of Systems: ROS: 10pt was reviewed & negative except for what was stated in HPI & below Physical Exam Physical Exam: Temp Pulse Resp BP Pulse Ox 36.9 C 54 L 12 110/73 98 02/26/18 08:00 02/26/18 08:00 02/26/18 08:00 02/26/18 08:00 02/26/18 08:00 Constitutional: no apparent distress, appears nourished, not in pain Eyes: PERRL, anicteric sclera, EOMI Ears, Nose, Mouth, Throat: moist mucous membranes, hearing normal, ears appear normal, no oral mucosal ulcers Cardiovascular: regular rate and rhythym, no murmur, rub, or gallop, No edema Respiratory: no respiratory distress, no rales or rhonchi, clear to auscultation Gastrointestinal: soft, non-tender abdomen, no palpable masses, other ( hypoactive bowel sounds, well healed midline scar, no rebound or guarding. ) Genitourinary: no bladder fullness, no bladder tenderness Skin: warm, normal color, no rashes or abrasions, no fluctuance, no induration, No mottled Musculoskeletal: full muscle strength, no muscle tenderness, normal joint ROM, no joint effusions Psychiatric: interacting appropriately, not anxious, not encephalopathic, thought process linear Lymph, Heme, Immunologic: no cervical LAD, no supraclavicular LAD Lab Data & Imaging Review 02/23/18 04:16 02/23/18 04:16 WBC 9.41 10^3/uL (3.80-9.50) 02/23/18 04:16 RBC 4.80 10^6/uL (4.40-6.38) 02/23/18 04:16 Hgb 15.7 g/dL (13.7-17.5) 02/23/18 04:16 Hct 45.1 % (40.0-51.0) 02/23/18 04:16 MCV 94.0 fL (81.5-99.8) 02/23/18 04:16 MCH 32.7 pg (27.9-34.1) 02/23/18 04:16 MCHC 34.8 g/dL (32.4-36.7) 02/23/18 04:16 RDW 12.0 % (11.5-15.2) 02/23/18 04:16 Plt Count 268 10^3/uL (150-400) 02/23/18 04:16 MPV 9.2 fL (8.7-11.7) 02/23/18 04:16 Neut % (Auto) 85.6 % (39.3-74.2) H 02/23/18 04:16 Lymph % (Auto) 10.2 % (15.0-45.0) L 02/23/18 04:16 Grady % (Auto) 3.7 % (4.5-13.0) L 02/23/18 04:16 Eos % (Auto) 0.0 % (0.6-7.6) L 02/23/18 04:16 Baso % (Auto) 0.1 % (0.3-1.7) L 02/23/18 04:16 Nucleat RBC Rel Count 0.0 % (0.0-0.2) 02/23/18 04:16 Absolute Neuts (auto) 8.05 10^3/uL (1.70-6.50) H 02/23/18 04:16 Absolute Lymphs (auto) 0.96 10^3/uL (1.00-3.00) L 02/23/18 04:16 Absolute Monos (auto) 0.35 10^3/uL (0.30-0.80) 02/23/18 04:16 Absolute Eos (auto) 0.00 10^3/uL (0.03-0.40) L 02/23/18 04:16 Absolute Basos (auto) 0.01 10^3/uL (0.02-0.10) L 02/23/18 04:16 Absolute Nucleated RBC 0.00 10^3/uL (0-0.01) 02/23/18 04:16 Immature Gran % 0.4 % (0.0-1.1) 02/23/18 04:16 Seg Neutrophils % 73.0 % 02/22/18 17:15 Band Neutrophils % 0 % 02/22/18 17:15 Lymphocytes % 16.0 % 02/22/18 17:15 Monocytes % 9.0 % 02/22/18 17:15 Eosinophils % 1.0 % 02/22/18 17:15 Basophils % 1.0 % 02/22/18 17:15 Metamyelocytes % 0 % 02/22/18 17:15 Myelocytes % 0 % 02/22/18 17:15 Promyelocytes % 0 % 02/22/18 17:15 Blast Cells % 0 % 02/22/18 17:15 Immature Gran # 0.04 10^3/uL (0.00-0.10) 02/23/18 04:16 Absolute Seg Neuts 10.50 10^/uL (1.70-6.50) H 02/22/18 17:15 Absolute Band Neuts 0.00 10^3/uL (0.00-0.70) 02/22/18 17:15 Absolute Lymphocytes 2.30 10^3/uL (1.00-3.00) 02/22/18 17:15 Absolute Monocytes 1.29 10^3/uL (0.30-0.80) H 02/22/18 17:15 Absolute Eosinophils 0.14 10^3/uL (0.03-0.40) 02/22/18 17:15 Absolute Basophils 0.14 10^3/uL (0.02-0.10) H 02/22/18 17:15 Absolute Metamyelocyte 0.00 10^3/mL (0.00-0.00) 02/22/18 17:15 Absolute Myelocytes 0.00 10^3/mL (0.00-0.00) 02/22/18 17:15 Absolute Promyelocytes 0.00 10^3/uL (0.00-0.00) 02/22/18 17:15 Absolute Plasma Cells 0.00 10^3/uL (0.00-0.00) 02/22/18 17:15 RBC/WBC/PLT Morphology NORMAL (NORMAL) 02/22/18 17:15 Absolute Blast Cells 0.00 10^3/uL (0.00-0.00) 02/22/18 17:15 Plasma Cells % 0 % 05/02/18 17:15 Platelet Estimate ADEQUATE (ADEQ) 02/22/18 17:15 Sodium 136 mEq/L (135-145) 02/23/18 04:16 Potassium 4.7 mEq/L (3.5-5.2) 02/23/18 04:16 Chloride 102 mEq/L (97-110) 02/23/18 04:16 Carbon Dioxide 23 mEq/l (22-31) 02/23/18 04:16 Anion Gap 11 mEq/L (8-16) 02/23/18 04:16 BUN 10 mg/dL (7-23) 02/23/18 04:16 Creatinine 0.8 mg/dL (0.7-1.3) 02/23/18 04:16 Estimated GFR > 60 02/23/18 04:16 Glucose 135 mg/dL (70-100) H 02/23/18 04:16 Calcium 9.1 mg/dL (8.5-10.4) 02/23/18 04:16 Magnesium 2.0 mg/dL (1.6-2.3) 02/23/18 04:16 Visualized and Interpreted imaging results: Yes Interpretation: CT from admission: mechanical SBO, no abscess, fluid or free air. KUB yesterday: persistent SBO, no free air Assessment & Plan Assessment: Bowel obstruction (Acute) Crohns disease (Acute) Plan: 37yo M, Hx of Crohn's c SBO, likely mechanical - after reviewing the patients imaging and getting a better clinical picture, his SBO looks to be more mechanical (adhesions) than Crohn's flare given the relative lack of inflammation on CT. Clinically, he looks pretty good, his abdomen is minimally distended and soft, he also does have some bowel sounds and has been passing flatus. Given his nausea with vomiting I did recommend a NGT which I think will help with decompression. We discussed decompression, bowel rest and hydration. Will re-eval tomorrow, may need Gastrografin study which is often therapeutic. I did tell him that if this persists he may need operative exploration to relieve the obstruction, he was understanding. Will cont to follow.
[2018-02-26] MEDS: ACETAMINOPHEN 325 MG TAB PO PRN (12:30)
[2018-02-26] MEDS: PROMETHAZINE HCL 25 MG/ML INJ IVP PRN (13:45)
--- NOTE | 2018-02-26 14:31 | HOSPPROG ---
Hospitalist Progress Note Assessment/Plan: 37-year-old male presents with acute small-bowel obstruction in the setting of Crohn's disease and acute flare. D/W Dr Gibson and Dr Song Plan: 1. Small bowel obstruction. -per xray, likely mechanical -NGT, d/w surgery -ambulating -appreciate GI consult -monitor next 48-72hrs, and hope for improvement -bowel rest, IV fluids, monitor serum electrolytes -supportive care with pain medications, antiemetics -possible need for surgical intervention 2. Possible acute Crohn's disease flare. -less likely -dc steriods -continue mesalamine -given home dose humira Diet. NPO IV fluids. Prophylaxis. Lovenox 40 Code. Full, brother is MD INÉS Disposition. Anticipated discharge uncertain this time, anticipated length stay is greater than 48 hr Subjective: Threw up last evening. Still nauseous. No pain. Objective: Vital Signs Temp Pulse Resp BP Pulse Ox 36.9 C 54 L 12 110/73 98 02/26/18 08:00 02/26/18 08:00 02/26/18 08:00 02/26/18 08:00 02/26/18 08:00 Laboratory Results 02/23/18 04:16 02/23/18 04:16 02/25/18 02/26/18 02/27/18 05:59 05:59 05:59 Intake Total 1200 2510 Output Total 3100 2250 300 Balance -1900 260 -300 - Physical Exam Constitutional: appears nourished, not in pain, uncomfortable Eyes: PERRL, anicteric sclera, EOMI Ears, Nose, Mouth, Throat: moist mucous membranes, hearing normal, ears appear normal Cardiovascular: regular rate and rhythym, No JVD, No edema Respiratory: no respiratory distress, no rales or rhonchi, clear to auscultation Gastrointestinal: tenderness, distension, No ascites Skin: warm, normal color, No mottled Musculoskeletal: full muscle strength, no muscle tenderness, normal joint ROM Neurologic: AAOx3 Psychiatric: interacting appropriately, not anxious, not encephalopathic, thought process linear ICD10 Worksheet Patient Problems: Problems Problem Status Onset Bowel obstruction Acute Crohns disease Acute
--- NOTE | 2018-02-26 16:52 | ASMTCMCOM ---
CM Note CM Note Notes: CM spoke with Sudheer SNEED, plan remains the same. Patient to discharge independently when medically stable, patient has supportive mom and brother. CM to follow and is available for any CM and D/C needs. Current D/C plan: Home independent. Date Signed: 02/26/2018 04:51 PM Electronically Signed By:Kim Fuentes
[2018-02-26] MEDS: HYDROmorphONE/DILAUDID 2 MG TAB PO PRN (22:18)
[2018-02-26] MEDS: MELATONIN 3 MG TAB PO SCH (22:18)
[2018-02-27] MEDS: HYDROmorphone HCL/NS 0.5 MG/ML SYR IVP PRN ×4 (00:23→07:26)
[2018-02-27] MEDS: diphenhydrAMINE 25 MG CAP PO PRN (01:13)
[2018-02-27] MEDS: D5W 1/2 NS 1,000 ML IV SCH ×3 (01:33→23:35)
[2018-02-27] MEDS: sulfaSALAzine 500 MG TAB PO SCH ×4 (02:03→21:03)
[2018-02-27] MEDS ORDERED: BENZOCAINE UNIT DOSE SPRAY HURRICAINE MM PRN (03:23)
[2018-02-27] MEDS: PANTOPRAZOLE SODIUM 40 MG VIAL IVP SCH (07:29)
[2018-02-27] MEDS ORDERED: ACETAMINOPHEN 650 MG SUPP PR PRN (07:52)
[2018-02-27] MEDS ORDERED: CEPACOL LOZENGE PO PRN (07:52)
[2018-02-27] MEDS ORDERED: KETOROLAC 30 MG/1 ML SDV IVP ONE (07:52)
[2018-02-27] MEDS: LORazepam 2 MG/ML INJ IVP PRN ×2 (08:06→22:02)
--- NOTE | 2018-02-27 08:45 | HOSPPROG ---
Hospitalist Progress Note Assessment/Plan: Natalio Gastelum is a 37-year-old male who was diagnosed with Crohn's in 2016. In the past he was noted to have a fistula and abscess that required surgery and a washout and did not have any resection. He had a recurrence of a right lower quadrant abscess 4 months later which was treated with percutaneous drain. Since then he has been on Humira weekly and had been doing well. He presented to the emergency room with bloating and nausea and vomiting. Prior to this admission, he had been treated steroids and his abdominal pain has varied. Today is my 1st encounter with the patient. Chart reviewed. * small-bowel obstruction -treated with bowel rest and supportive care -Gastroenterology and surgery are both involved -surgical team noted his bowel obstruction looks to be more mechanical than related to Crohn's -abdominal x-ray today shows persistent small bowel obstruction -surgery may about order a Gastrografin study -pain better w nasogastric decompression * Initial concern for acute Crohn's disease flare. -was initially treated w steroids, now stopped Disposition. Anticipated discharge uncertain this time, anticipated length stay is greater than 48 hr Subjective: Natalio said he wasn't able to sleep last night/ not having significant abdominal pain. Objective: Vital Signs Temp Pulse Resp BP Pulse Ox 37.0 C 73 16 137/94 H 97 02/27/18 08:10 02/27/18 08:10 02/27/18 08:10 02/27/18 08:10 02/27/18 08:10 Laboratory Results 02/23/18 04:16 02/23/18 04:16 02/26/18 02/27/18 02/28/18 05:59 05:59 05:59 Intake Total 2510 2196 Output Total 2250 4200 Balance 260 -2003 - Physical Exam Constitutional: appears nourished, uncomfortable Eyes: PERRL Ears, Nose, Mouth, Throat: hearing normal Cardiovascular: regular rate and rhythym Respiratory: no respiratory distress Gastrointestinal: soft, non-tender abdomen, No normoactive bowel sounds ( tympanic) Skin: warm Musculoskeletal: full muscle strength Neurologic: AAOx3 Psychiatric: interacting appropriately, not anxious ICD10 Worksheet Patient Problems: Problems Problem Status Onset Bowel obstruction Acute Crohns disease Acute
--- NOTE | 2018-02-27 09:15 | SOAPPROG ---
SOAP Progress Note Assessment/Plan: Assessment/Plan: 37 Y M c hx Crohn's disease, +abdominal surgery for fistula and abscess, no resection. Admitted with SBO. Has been on steroids during this stay. Initial large NG output, now decreased. D/w'ed Dr. Song, who will continue to follow the patient, and seen with Dr. Low today. Allow for more time for conservative management with nasogastric decompression. AXR still with SBO--images personally reviewed. Still may need surgery, despite abdominal exam being fairly benign today. Will stop lovenox in case of need for surgery--patient ambulatory. LIZARRAGA/sore throat. Added toradol (Dr. Low ok with short course despite Crohn's). Ativan. OR tylenol. Cepacol lozenges. S: feeling miserable, but abdomen feeling better. has LIZARRAGA, couldn't sleep, progressive sore throat. constellation of complaints, but no obstructive complaints--abd without pain, no n/v. O: alert, nad ng in place, mmm, no jaundice ctab rrr abd soft, NT, rare BS, +scar ext: no edema 02/27/18 09:05 Objective: Vital Signs Temp Pulse Resp BP Pulse Ox 37.0 C 73 16 137/94 H 97 02/27/18 08:10 02/27/18 08:10 02/27/18 08:10 02/27/18 08:10 02/27/18 08:10 Laboratory Results 02/23/18 04:16 02/23/18 04:16 02/26/18 02/27/18 02/28/18 05:59 05:59 05:59 Intake Total 3290 2196 Output Total 8072 4200 Balance 260 -2003 ICD10 Worksheet Patient Problems: Problems Problem Status Onset Bowel obstruction Acute Crohns disease Acute
--- NOTE | 2018-02-27 09:59 | SOAPPROG ---
SOAP Progress Note Assessment/Plan: Assessment: seen with dontae SEWELL/ see her note abd soft,nontender with bs but no flatus/ scaphoid chest clear/ cor rr heent nonicteric co headache primarily ng ouput now minimal and clear 2-way still shows sbo Plan:continue ng suction/ fu KUB/ may need surgery if not resolving but very comfortable now 02/27/18 09:56 Objective: Vital Signs Temp Pulse Resp BP Pulse Ox 37.0 C 73 16 137/94 H 97 02/27/18 08:10 02/27/18 08:10 02/27/18 08:10 02/27/18 08:10 02/27/18 08:10 Laboratory Results 02/23/18 04:16 02/23/18 04:16 02/26/18 02/27/18 02/28/18 05:59 05:59 05:59 Intake Total 2510 2196 Output Total 2250 4200 Balance 260 -2003 ICD10 Worksheet Patient Problems: Problems Problem Status Onset Bowel obstruction Acute Crohns disease Acute
--- NOTE | 2018-02-27 13:54 | SOAPPROG ---
SOAP Progress Note Assessment/Plan: Assessment: SBO, patient clinically feels better with NG (however NG uncomfortable). Abdomen flat, No BS. Patient is frustrated. Does not like the NG tube. He would like to try liquids. Plan: 1. Clamp NG 2. Trial of liquids 3. SBFT 4. If continued high grad obstruction patient will need surgery 02/27/18 13:47 Subjective: CC: SBO Patient feels better, abdomen is flat. No nausea, no flatus Objective: Vital Signs Temp Pulse Resp BP Pulse Ox 37.0 C 73 16 137/94 H 97 02/27/18 08:10 02/27/18 08:10 02/27/18 08:10 02/27/18 08:10 02/27/18 08:10 Laboratory Results 02/23/18 04:16 02/23/18 04:16 02/26/18 02/27/18 02/28/18 05:59 05:59 05:59 Intake Total 2510 2196 Output Total 2250 4200 Balance 260 -2003 Generic Name Dose Route Start Last Admin Trade Name Freq PRN Reason Stop Dose Admin Acetaminophen 650 mg 02/22/18 17:53 02/26/18 12:30 Tylenol PO 08/21/18 17:52 650 mg Q4HRS PRN Administration Pain, Mild/Fever, Can Take PO Acetaminophen 650 mg 02/27/18 07:52 Tylenol Rectal HI 08/26/18 07:51 Q4HRS PRN Pain, Mild/Fever,Can't Take PO Adalimumab 40 mg 02/23/18 10:13 02/23/18 11:05 Humira SC 08/22/18 10:12 40 mg Th JYOTSNA Administration Amphetamine/Dextroamphetamine 30 mg 02/23/18 09:00 Adderall PO 08/22/18 08:59 BID@0900,1300 PRN ATTENTION Benzocaine 1 each 02/27/18 03:23 02/27/18 03:48 Hurricaine [place] MM 08/26/18 03:22 1 each Q6 PRN Administration Sore Throat Diphenhydramine HCl 25 - 50 mg 02/22/18 23:38 02/23/18 01:46 Benadryl PO 08/21/18 23:37 25 mg Q6HRS PRN Administration Itching Hydromorphone HCl 2 mg 02/22/18 17:53 02/26/18 22:18 Dilaudid PO 03/04/18 17:52 2 mg Q4HRS PRN Administration Pain, Severe Able to Take PO Hydromorphone/Sodium Chloride 0.2 - 1 mg 02/26/18 11:30 02/27/18 07:26 Hydromorphone IVP 03/04/18 17:52 0.5 mg Q2 PRN Administration Pain, Severe Unable to Take PO Dextrose/Sodium Chloride 1,000 mls @ 100 mls/hr 02/24/18 11:00 02/27/18 12:27 D5w 1/2 Ns IV 08/23/18 10:59 1,000 mls CONT JYOTSNA Administration Ketorolac Tromethamine 15 mg 02/27/18 14:53 Toradol IVP 03/04/18 14:52 Q6HRS PRN head ache Lorazepam 1 mg 02/27/18 07:52 02/27/18 08:06 Ativan Injection IVP 08/26/18 07:51 1 mg Q6H PRN Administration Anxiety, Unable to Take PO Melatonin 6 mg 02/23/18 21:00 02/26/18 22:18 Melatonin PO 08/22/18 20:59 6 mg HS JYOTSNA Administration Metoclopramide HCl 10 mg 02/22/18 17:53 Reglan PO 08/21/18 17:52 Q6HRS PRN Nausea/Vomiting, Use 1st Metoclopramide HCl 10 mg 02/22/18 17:53 02/24/18 17:29 Reglan Injection IVP 08/21/18 17:52 10 mg Q6HRS PRN Administration Nausea/Vomiting, Can't Take PO Ondansetron HCl 4 mg 02/22/18 17:53 02/25/18 15:20 Zofran IVP 08/21/18 17:52 4 mg Q4HRS PRN Administration Nausea/Vomiting, Can't Take PO Ondansetron HCl 4 mg 02/22/18 17:53 Zofran Odt PO 08/21/18 17:52 Q4HRS PRN Nausea/Vomiting, Use 2nd Pantoprazole Sodium 40 mg 02/26/18 09:45 02/27/18 07:29 Protonix IVP 08/25/18 09:44 40 mg DAILY JYOTSNA Administration Promethazine HCl 6.25 - 12.5 mg 02/22/18 17:53 02/26/18 13:45 Phenergan IVP 08/21/18 17:52 12.5 mg Q6HRS PRN Administration Nausea/Vomiting, Use 3rd Promethazine HCl 12.5 - 25 mg 02/22/18 17:53 Phenergan PO 08/21/18 17:52 Q6HRS PRN Nausea/Vomiting, Use 3rd Sulfasalazine 1,000 mg 02/22/18 21:00 02/27/18 12:25 Azulfidine PO 03/24/18 20:59 Not Given QID JYOTSNA Throat Lozenges 1 ea 02/27/18 07:52 Cepacol Lozenge PO 08/26/18 07:51 PRN PRN Sore Throat Discontinued Medications Generic Name Dose Route Start Last Admin Trade Name Freq PRN Reason Stop Dose Admin Adalimumab 40 mg 02/23/18 12:00 Humira SC 08/22/18 11:59 Th [facility] Diphenhydramine HCl 12.5 mg 02/27/18 01:23 02/27/18 01:28 Benadryl Injection IVP 02/27/18 01:24 12.5 mg ONCE ONE Administration Enoxaparin Sodium 40 mg 02/23/18 09:00 02/26/18 11:06 Lovenox SC 08/22/18 08:59 Not Given DAILY JYOTSNA Hydromorphone HCl 0.2 - 1 mg 02/22/18 17:53 02/26/18 02:23 Dilaudid IVP 03/04/18 17:52 0.5 mg Q2 PRN Administration Pain, Severe Unable to Take PO Sodium Chloride 1,000 mls @ 0 mls/hr 02/22/18 17:12 02/22/18 17:20 Ns IV 02/22/18 17:13 1,000 mls EDNOW ONE Administration Protocol Wide Open Potassium Chloride/Dextrose/Sod Cl 1,000 mls @ 150 mls/hr 02/22/18 18:00 02/08 04:10 D5w 1/2 Ns W/ 20 Kcl/L IV 08/21/18 17:59 1,000 mls CONT JYOTSNA Administration Iopamidol Confirm 02/22/18 15:54 Isovue-300 Administered 02/22/18 15:55 Dose 100 ml .ROUTE .STK-MED ONE Ketorolac Tromethamine 30 mg 02/27/18 07:52 02/27/18 08:06 Toradol IVP 02/27/18 07:53 30 mg ONCE ONE Administration Methylprednisolone Sodium Succinate 40 mg 02/22/18 17:44 02/22/18 18:04 Solu-Medrol IVP 02/22/18 17:45 40 mg EDNOW ONE Administration Methylprednisolone Sodium Succinate 40 mg 02/23/18 02:00 02/26/18 10:08 Solu-Medrol IVP 08/22/18 01:59 40 mg Q8H JYOTSNA Administration Ondansetron HCl 4 mg 02/22/18 17:12 02/22/18 17:20 Zofran IVP 02/22/18 17:13 4 mg EDNOW ONE Administration Pantoprazole Sodium 40 mg 02/23/18 09:00 02/26/18 10:17 Protonix PO 08/22/18 08:59 Not Given DAILY JYOTSNA Physical Exam - Physical Exam General Appearance: alert, no apparent distress EENT: other (NG Tube in place) Respiratory: lungs clear, normal breath sounds Cardiac/Chest: regular rate, rhythm Abdomen: soft, other (flat, absent BS) Skin: normal color, warm/dry Neuro/Psych: alert, normal mood/affect, oriented x 3 ICD10 Worksheet Patient Problems: Problems Problem Status Onset Bowel obstruction Acute Crohns disease Acute
[2018-02-27] MEDS: KETOROLAC 15 MG/1 ML SDV IVP PRN ×2 (16:04→22:02)
--- NOTE | 2018-02-27 18:19 | SOAPPROG ---
SOAP Progress Note Assessment/Plan: Assessment: seen with dontae SEWELL/ see her note abd soft,nontender with bs but no flatus/ scaphoid chest clear/ cor rr heent nonicteric co headache primarily ng ouput now minimal and clear 2-way still shows sbo Plan:continue ng suction/ fu KUB/ may need surgery if not resolving but very comfortable now 02/27/18 09:56 02/27/18 18:18 SMALL-BOWEL FOLLOW-THROUGH STILL SHOWS PERSISTENT SMALL BOWEL OBSTRUCTION/ PATIENT DOING WELL BUT IS NOW BACK ON NG SUCTION RISKS AND OPTIONS BEEN FULLY DISCUSSED/ PLAN WOULD BE FOR LAPAROSCOPY AND/OR LAPAROTOMY IN THE MORNING UNLESS SUDDENLY RESOLVED Objective: Vital Signs Temp Pulse Resp BP Pulse Ox 37.4 C 109 H 16 114/83 H 98 02/27/18 16:00 02/27/18 16:00 02/27/18 16:00 02/27/18 16:00 02/27/18 16:00 Laboratory Results 02/23/18 04:16 02/23/18 04:16 02/26/18 02/27/18 02/28/18 05:59 05:59 05:59 Intake Total 5910 2196 Output Total 4408 4200 Balance 260 -2003 ICD10 Worksheet Patient Problems: Problems Problem Status Onset Bowel obstruction Acute Crohns disease Acute
[2018-02-27] MEDS: ONDANSETRON 4 MG/2 ML VIAL IVP PRN (18:37)
[2018-02-27] MEDS: MELATONIN 3 MG TAB PO SCH (21:03)
[2018-02-28] MEDS: diphenhydrAMINE 25 MG CAP PO PRN (00:59)
[2018-02-28] MEDS: HYDROmorphone HCL/NS 0.5 MG/ML SYR IVP PRN ×5 (01:00→20:28)
[2018-02-28] MEDS: sulfaSALAzine 500 MG TAB PO SCH ×4 (04:04→22:47)
[2018-02-28] MEDS: KETOROLAC 15 MG/1 ML SDV IVP PRN ×2 (07:40→22:12)
[2018-02-28] MEDS: PANTOPRAZOLE SODIUM 40 MG VIAL IVP SCH (07:42)
[2018-02-28] MEDS: ONDANSETRON 4 MG/2 ML VIAL IVP PRN ×3 (07:48→20:28)
[2018-02-28] MEDS: D5W 1/2 NS 1,000 ML IV SCH (07:52)
--- NOTE | 2018-02-28 08:37 | HOSPPROG ---
Hospitalist Progress Note Assessment/Plan: Natalio Gastelum is a 37-year-old male who was diagnosed with Crohn's in 2016. In the past he was noted to have a fistula and abscess that required surgery and a washout and did not have any resection. He had a recurrence of a right lower quadrant abscess 4 months later which was treated with percutaneous drain. Since then he has been on Humira weekly and had been doing well. He presented to the emergency room with bloating and nausea and vomiting. Prior to this admission, he had been treated steroids and his abdominal pain has varied. * small-bowel obstruction -treated with bowel rest and supportive care (NG, fluids, pain management) -OR today for a Laparoscopy - DR Song and myself met with the patient and reviewed his care * Initial concern for acute Crohn's disease flare. -was initially treated w steroids, now stopped *Plan: OR today, will recheck labs in a.m. Subjective: Natalio is frustrated. slept poorly last night. Objective: Vital Signs Temp Pulse Resp BP Pulse Ox 36.8 C 97 16 110/89 H 95 02/28/18 07:32 02/28/18 07:32 02/28/18 07:32 02/28/18 07:32 02/28/18 07:32 Laboratory Results 02/23/18 04:16 02/23/18 04:16 02/27/18 02/28/18 03/01/18 05:59 05:59 05:59 Intake Total 2196 2200 Output Total 4200 2100 Balance -2003 100 - Physical Exam Constitutional: uncomfortable Eyes: PERRL Ears, Nose, Mouth, Throat: hearing normal Respiratory: no respiratory distress Gastrointestinal: soft, non-tender abdomen Skin: warm Musculoskeletal: full muscle strength Neurologic: AAOx3 Psychiatric: interacting appropriately ICD10 Worksheet Patient Problems: Problems Problem Status Onset Bowel obstruction Acute Crohns disease Acute
--- NOTE | 2018-02-28 11:13 | SOAPPROG ---
SOAP Progress Note Assessment/Plan: Assessment: SBO, SBFT with complete obstruction Plan: SBO not resolving with medical management Plan for surgery today. 02/28/18 11:10 Subjective: CC: SBO C/o abdominal pain, sore throat Nausea Objective: Vital Signs Temp Pulse Resp BP Pulse Ox 36.8 C 97 16 110/89 H 95 02/28/18 07:32 02/28/18 07:32 02/28/18 07:32 02/28/18 07:32 02/28/18 07:32 Laboratory Results 02/23/18 04:16 02/23/18 04:16 02/27/18 02/28/18 03/01/18 05:59 05:59 05:59 Intake Total 2196 2200 Output Total 4200 2100 Balance -2003 100 Physical Exam - Physical Exam General Appearance: alert EENT: other (NG in place, not to wall suction) Respiratory: lungs clear Cardiac/Chest: regular rate, rhythm Abdomen: distended (no BS), other Skin: normal color, warm/dry Neuro/Psych: alert, oriented x 3 ICD10 Worksheet Patient Problems: Problems Problem Status Onset Bowel obstruction Acute Crohns disease Acute
[2018-02-28] MEDS ORDERED: CLINDAMYCIN 900 MG/DEXTROSE 50 ML IV ONE (12:51)
--- NOTE | 2018-02-28 12:51 | PDHPUP ---
History & Physical Update H&P update statement: This history and physical update is based on an assessment of the patient which was completed after admission or registration (within 24 hours), but prior to the surgery/procedure. H&P update: H&P reviewed & patient examined, no change in patient's condition since H&P completed
[2018-02-28] MEDS ORDERED: LR 1,000 ML IV ONE (13:03)
[2018-02-28] MEDS ORDERED: BUPIVACAINE 0.5% 30 ML SDV ONE (13:20)
[2018-02-28] MEDS ORDERED: ONDANSETRON 4 MG/2 ML VIAL ONE (13:59)
[2018-02-28] MEDS ORDERED: ROCURONIUM 50 MG/5 ML VIAL ONE (13:59)
[2018-02-28] MEDS ORDERED: DEXAMETHASONE 4 MG/ML VIAL ONE (13:59)
[2018-02-28] MEDS ORDERED: LIDOCAINE 2% 100 MG/5 ML SYR ONE (14:00)
[2018-02-28] MEDS ORDERED: PROPOFOL/EMULSION 500 MG/50 ML BOTTLE IV ONE (14:00)
[2018-02-28] MEDS ORDERED: fentaNYL 100 MCG/2 ML INJ ONE ×3 (14:00→16:21)
[2018-02-28] MEDS ORDERED: PHENYLEPHRINE HCL 100 MCG/ML SYR ONE (14:18)
--- NOTE | 2018-02-28 14:28 | PDANEPAE ---
ANE History of Present Illness exploratory laproscopy vs. laparotomy for SBO secondary to Chron's Dz ANE Past Medical History - Pulmonary History Hx Oxygen in Use at Home: No Hx Sleep Apnea: No Sleep Apnea Screening Result - Last Documented: Negative - Endocrine History Hx Diabetes: No - GI History Hx Gastrointestinal Disorders: Yes Gastrointestinal History Comment: Chrons - Chronic Pain History Chronic Pain: No ANE Review of Systems Review of Systems: - Exercise capacity Exercise capacity: >=4 METS ANE Patient History - Allergies Allergies/Adverse Reactions: piperacillin [From Zosyn] Allergy (Verified 02/22/18 18:30) tazobactam [From Zosyn] Allergy (Verified 02/22/18 18:30) - Home Medications Home medications: home medication list seen and reviewed Home Medications: Adalimumab [Humira] 0 mg INJ TH 02/22/18 [Last Taken 02/16/18] Dextroamphetamine/Amphetamine [Adderall 30 mg Tablet] 30 mg PO BID@09,13 PRN 12/11 [Last Taken 02/18/18] Herbals/Supplements -Info Only 1 ea PO DAILY 02/22/18 [Last Taken 02/18/18] Hydrocodone/Acetaminophen [[place] 5/325 (*)] 1 - 2 tab PO Q6H PRN 02/22/18 [Last Taken 02/22/18 05:00] Pantoprazole Sodium [Protonix 40mg (*)] 40 mg PO DAILY 02/22/18 [Last Taken 12/11] sulfaSALAzine [Azulfidine 500 MG (*)] 1,000 mg PO QID 02/22/18 [Last Taken 02/18] - NPO status NPO Since - Liquids (Date): 02/19/18 NPO Since - Liquids (Time): 00:00 NPO Since - Solids (Date): 02/19/18 NPO Since - Solids (Time): 00:00 - Smoking Hx Smoking Status: Current some day smoker - Alcohol Use Alcohol Use: Occasionally ANE Labs/Vital Signs - Labs Result Diagrams: 02/23/18 04:16 02/23/18 04:16 - Vital Signs Blood Pressure: 113/83 Heart Rate: 104 Respiratory Rate: 16 O2 Sat (%): 96 Height: 175.26 cm Weight: 79.379 kg ANE Physical Exam - Airway Neck exam: FROM Mallampati Score: Class 2 Mouth exam: normal dental/mouth exam - Pulmonary Pulmonary: no respiratory distress - Cardiovascular Cardiovascular: regular rate and rhythym - ASA Status ASA Status: II ANE Anesthesia Plan Anesthesia Plan: general endotracheal anesthesia Urgent/Emergent Case: Ritu huston completed preop but documented later for safe timely pt care
--- NOTE | 2018-02-28 15:13 | POSTOPPROG ---
Post Op Note Date of Operation: 02/28/18 Surgeon: Maxim Song Insurance Manager: Terrence Low Anesthesiologist: Jonathan Olvera Anesthesia: GET(General Endotracheal) Pre-op Diagnosis: hx Crohn's disease, hx laparatomy and abdominal abscess, SBO Post-op Diagnosis: same. No evidence of active Crohn's. Procedure: laparotomy with lysis of adhesions Findings: adhesions causing obstruction, viable bowel. Inf/Abcess present in the surg proc area at time of surgery?: No EBL: Minimal Complications: none
[2018-02-28] MEDS ORDERED: NEOSTIGMINE METHYLSULFATE 10 MG/10 ML MDV ONE (15:16)
[2018-02-28] MEDS ORDERED: GLYCOPYRROLATE 0.2 MG/1 ML VIAL ONE ×2 (15:16)
[2018-02-28] MEDS ORDERED: ALBUTEROL 3 ML DEYVIAL IH PRN (15:19)
[2018-02-28] MEDS ORDERED: NALOXONE HCL 0.4 MG/ML INJ IVP PRN (15:19)
[2018-02-28] MEDS ORDERED: ACETAMINOPHEN 500 MG TAB PO PRN (15:19)
[2018-02-28] MEDS ORDERED: HYDROCODONE/APAP 5/325 TAB PO PRN (15:19)
[2018-02-28] MEDS ORDERED: METOCLOPRAMIDE 10 MG/2 ML VIAL IVP PRN (15:19)
[2018-02-28] MEDS ORDERED: LR 500 ML IV PRN (15:19)
[2018-02-28] MEDS ORDERED: ONDANSETRON 4 MG/2 ML VIAL IVP PRN (15:19)
[2018-02-28] MEDS ORDERED: DEXAMETHASONE 4 MG/ML VIAL IVP PRN (15:19)
[2018-02-28] MEDS ORDERED: PROMETHAZINE HCL 25 MG/ML INJ IVP PRN (15:19)
[2018-02-28] MEDS ORDERED: oxyCODONE IR 5 MG TAB PO PRN (15:19)
[2018-02-28] MEDS ORDERED: LABETALOL HCL 5 MG/ML 20 ML MDV IVP PRN (15:19)
[2018-02-28] MEDS ORDERED: PHENYLEPHRINE HCL 100 MCG/ML SYR IVP PRN (15:19)
[2018-02-28] MEDS: fentaNYL 100 MCG/2 ML INJ IVP PRN ×2 (16:24→16:42)
--- NOTE | 2018-02-28 16:31 | GOP ---
[f rep st] OPERATIVE REPORT DATE OF OPERATION: 02/28/2018 SURGEON: Maxim Song MD STRAIGHTENER: Terrence Low MD ANESTHESIA: General endotracheal. ANESTHESIOLOGIST: Dr. Jonathan Olvera PREOPERATIVE DIAGNOSIS: Small bowel obstruction. POSTOPERATIVE DIAGNOSIS: Small bowel obstruction. PROCEDURE PERFORMED: 1. Exploratory laparoscopy. 2. Exploratory laparotomy with adhesiolysis. FINDINGS: Attempted laparoscopic lysis of adhesions, given significant small bowel dilatation and fl uid engorgement, unable to successfully lyse sentinel adhesion. SPECIMENS: None. ESTIMATED BLOOD LOSS: 5 cc. DESCRIPTION OF PROCEDURE: The patient was greeted in the preoperative suite. Once again, risks, parveen efits, and alternatives were discussed. Consent was signed. He was then brought back to the operati ve suite, placed on the OR table in supine position. After all anesthesia machines including SCDs we re on and functioning, [employer] time-out was performed. After successful induction of general anesthesia, the patient's abdomen was prepped and draped in typical sterile fashion. I en tered the abdomen via a supraumbilical cutdown through which the Veress needle was passed. I achieve d pneumoperitoneum to 15 mmHg, which was well tolerated by the patient. Through this site, I inserte d a 5 mm trocar using the Visiport technique. Once in the abdomen, the patient had a significant angel unt of omental and small bowel adhesions to the anterior abdominal wall. I inserted an additional 5 mm trocar in the left upper quadrant and took down a significant amount of these adhesions. I identi fied both decompressed and dilated small bowel loops and attempted to deliver the area in question, b ut was unsuccessful in doing so laparoscopically. I converted to laparotomy. I made a midline incision. I removed the patient's old midline scar. I was able to eviscerate the small bowel and using a combination of finger fracture to the patient's le ft retroperitoneum, able to deliver out the area of concern. There was a 5 cm area with 2 adhesions in it. These were successfully taken down sharply. The bowel involved in these was viable and paten t. There was a small serosal injury adjacent to one which was oversewn with multiple interrupted 3-0 Vicryl stitches. I then turned my attention toward running the bowel from the ligament of Treitz distally, all the way to the terminal ileum. There was another area of adhesions within the patient's pelvis which was ly sed sharply. The entire small bowel was open and free at this point in time. I identified no other significant pathology. I returned the patient's small bowel to his abdomen. Seprafilm was placed de ep to the incision which was then closed with a #1 PDS in a running fashion noting excellent fascial reapproximation. Local anesthesia was then infiltrated into the fascia. The entire old scar was the n removed. The skin was run with a 4-0 Monocryl over which Steri-Strips and a sterile dressing were placed. The patient was then extubated in the operative suite and taken to the PACU in satisfactory condition. DRAINS: None. COUNTS: All counts were reported as correct x2. /[id number]/MODL
[2018-02-28] MEDS: NS 1,000 ML IV SCH (17:18)
[2018-02-28] MEDS: LORazepam 2 MG/ML INJ IVP PRN (22:12)
[2018-02-28] MEDS: MELATONIN 3 MG TAB PO SCH (22:47)
[2018-03-01] MEDS: NS 1,000 ML IV SCH ×4 (01:04→22:59)
[2018-03-01] MEDS: HYDROmorphone HCL/NS 0.5 MG/ML SYR IVP PRN ×6 (01:07→18:30)
[2018-03-01] MEDS: sulfaSALAzine 500 MG TAB PO SCH ×2 (05:17→12:07)
[2018-03-01 05:36] LABS: PLATELET COUNT 293 10^3/uL (150-400)
[2018-03-01] MEDS: PANTOPRAZOLE SODIUM 40 MG VIAL IVP SCH (08:08)
--- NOTE | 2018-03-01 08:40 | SOAPPROG ---
SOAP Progress Note Assessment/Plan: Assessment: SBO, s/p lysis of adhesion. No active crohn's disease. Plan: 1. Post op care per surgery 2. Solumderol was discontinued. Would not restart treatment for Crohns until after discharge. Would hold Humira post-op at least 2 weeks or until adequate would healing per surgery 3. Will sign off, patient will need floolw up with Dr. Saucedo after discharge 03/01/18 08:35 03/01/18 08:43 Subjective: CC: SBO, Crohn's No active crohns seen at surgery. Had lysis of adhesins with out resection. Patient still with NG but feeling better. Objective: Vital Signs Temp Pulse Resp BP Pulse Ox 36.9 C 95 16 107/68 95 03/01/18 08:26 03/01/18 08:26 03/01/18 08:26 03/01/18 08:26 03/01/18 08:26 Laboratory Results 03/01/18 04:50 03/01/18 04:50 02/28/18 03/01/18 03/02/18 05:59 05:59 05:59 Intake Total 2200 4700 Output Total 2100 900 Balance 100 3800 Generic Name Dose Route Start Last Admin Trade Name Freq PRN Reason Stop Dose Admin Acetaminophen 650 mg 02/22/18 17:53 02/26/18 12:30 Tylenol PO 08/21/18 17:52 650 mg Q4HRS PRN Administration Pain, Mild/Fever, Can Take PO Acetaminophen 650 mg 02/27/18 07:52 Tylenol Rectal GA 08/26/18 07:51 Q4HRS PRN Pain, Mild/Fever,Can't Take PO Adalimumab 40 mg 02/23/18 10:13 02/23/18 11:05 Humira SC 08/22/18 10:12 40 mg Th JYOTSNA Administration Amphetamine/Dextroamphetamine 30 mg 02/23/18 09:00 Adderall PO 08/22/18 08:59 BID@0900,1300 PRN ATTENTION Benzocaine 1 each 02/27/18 03:23 02/27/18 03:48 Hurricaine Roc[place]le MM 08/26/18 03:22 1 each Q6 PRN Administration Sore Throat Diphenhydramine HCl 25 - 50 mg 02/22/18 23:38 02/28/18 00:59 Benadryl PO 08/21/18 23:37 50 mg Q6HRS PRN Administration Itching Hydromorphone HCl 2 mg 02/22/18 17:53 02/26/18 22:18 Dilaudid PO 03/04/18 17:52 2 mg Q4HRS PRN Administration Pain, Severe Able to Take PO Hydromorphone/Sodium Chloride 0.2 - 1 mg 02/26/18 11:30 03/01/18 04:46 Hydromorphone IVP 03/04/18 17:52 1 mg Q2 PRN Administration Pain, Severe Unable to Take PO Sodium Chloride 1,000 mls @ 125 mls/hr 02/28/18 16:30 03/01/18 08:07 Ns IV 08/27/18 16:29 1,000 mls CONT JYOTSNA Administration Ketorolac Tromethamine 15 mg 02/27/18 14:53 02/28/18 22:12 Toradol IVP 03/04/18 14:52 15 mg Q6HRS PRN Administration head ache Lorazepam 1 mg 02/27/18 07:52 02/28/18 22:12 Ativan Injection IVP 08/26/18 07:51 1 mg Q6H PRN Administration Anxiety, Unable to Take PO Melatonin 6 mg 02/23/18 21:00 02/28/18 22:47 Melatonin PO 08/22/18 20:59 Not Given HS JYOTSNA Metoclopramide HCl 10 mg 02/22/18 17:53 Reglan PO 08/21/18 17:52 Q6HRS PRN Nausea/Vomiting, Use 1st Metoclopramide HCl 10 mg 02/22/18 17:53 02/24/18 17:29 Reglan Injection IVP 08/21/18 17:52 10 mg Q6HRS PRN Administration Nausea/Vomiting, Can't Take PO Ondansetron HCl 4 mg 02/22/18 17:53 02/28/18 20:28 Zofran IVP 08/21/18 17:52 4 mg Q4HRS PRN Administration Nausea/Vomiting, Can't Take PO Ondansetron HCl 4 mg 02/22/18 17:53 Zofran Odt PO 08/21/18 17:52 Q4HRS PRN Nausea/Vomiting, Use 2nd Pantoprazole Sodium 40 mg 02/26/18 09:45 03/01/18 08:08 Protonix IVP 08/25/18 09:44 40 mg DAILY JYOTSNA Administration Promethazine HCl 6.25 - 12.5 mg 02/22/18 17:53 02/26/18 13:45 Phenergan IVP 08/21/18 17:52 12.5 mg Q6HRS PRN Administration Nausea/Vomiting, Use 3rd Promethazine HCl 12.5 - 25 mg 02/22/18 17:53 Phenergan PO 08/21/18 17:52 Q6HRS PRN Nausea/Vomiting, Use 3rd Sulfasalazine 1,000 mg 02/22/18 21:00 03/01/18 05:17 Azulfidine PO 03/24/18 20:59 Not Given QID JOYTSNA Throat Lozenges 1 ea 02/27/18 17:31 Cepacol Lozenge PO 08/26/18 17:30 PRN PRN Sore Throat Discontinued Medications Generic Name Dose Route Start Last Admin Trade Name Freq PRN Reason Stop Dose Admin Acetaminophen 500 mg 02/28/18 15:19 Tylenol PO 02/28/18 16:20 Q6HRS PRN PACU, Pain Mild Hydrocodone Bitart/Acetaminophen 1 - 2 tab 02/28/18 15:19 [place] 5/325 PO 02/28/18 16:20 Q4HRS PRN PACU, Pain Moderate Adalimumab 40 mg 02/23/18 12:00 Humira SC 08/22/18 11:59 Th JYOTSNA Albuterol 3 ml 02/28/18 15:19 Proventil Neb IH 02/28/18 16:19 Q10M PRN PACU, Wheezing Bupivacaine HCl Confirm 02/28/18 13:20 02/28/18 14:35 Sensorcaine 0.5% Vial Administered 02/28/18 13:21 30 ml Dose Administration 30 ml .ROUTE .STK-MED ONE Dexamethasone Confirm 02/28/18 13:59 Decadron Injection Administered 02/28/18 14:00 Dose 4 mg .ROUTE .STK-MED ONE Dexamethasone 4 mg 02/28/18 15:19 Decadron Injection IVP 02/28/18 16:20 ONCE PRN PACU, Nausea/Vomiting Diphenhydramine HCl 12.5 mg 02/27/18 01:23 02/27/18 01:28 Benadryl Injection IVP 02/27/18 01:24 12.5 mg ONCE ONE Administration Enoxaparin Sodium 40 mg 02/23/18 09:00 02/26/18 11:06 Lovenox SC 08/22/18 08:59 Not Given DAILY JYOTSNA Ephedrine Sulfate 25 mg 02/28/18 15:19 Ephedrine Sulfate IM 02/28/18 16:20 ONCE PRN PACU, Nausea/Vomiting Fentanyl Confirm 02/28/18 14:00 Sublimaze Administered 02/28/18 14:01 Dose 100 mcg .ROUTE .STK-MED ONE Fentanyl 25 - 100 mcg 02/28/18 15:19 02/28/18 16:42 Sublimaze IVP 02/28/18 16:19 50 mcg Q5M PRN Administration PACU, IMMEDIATE Pain control Fentanyl Confirm 02/28/18 15:28 Sublimaze Administered 02/28/18 15:29 Dose 100 mcg .ROUTE .STK-MED ONE Fentanyl Confirm 02/28/18 16:21 Sublimaze Administered 02/28/18 16:22 Dose 100 mcg .ROUTE .STK-MED ONE Glycopyrrolate Confirm 02/28/18 15:16 Glycopyrrolate Administered 02/28/18 15:17 Dose 0.2 mg .ROUTE .STK-MED ONE Glycopyrrolate Confirm 02/28/18 15:16 Glycopyrrolate Administered 02/28/18 15:17 Dose 0.2 mg .ROUTE .STK-MED ONE Hydromorphone HCl 0.2 - 1 mg 02/22/18 17:53 02/26/18 02:23 Dilaudid IVP 03/04/18 17:52 0.5 mg Q2 PRN Administration Pain, Severe Unable to Take PO Sodium Chloride 1,000 mls @ 0 mls/hr 02/22/18 17:12 02/22/18 17:20 Ns IV 02/22/18 17:13 1,000 mls EDNOW ONE Administration Protocol Wide Open Potassium Chloride/Dextrose/Sod Cl 1,000 mls @ 150 mls/hr 02/22/18 18:00 02/08 04:10 D5w 1/2 Ns W/ 20 Kcl/L IV 08/21/18 17:59 1,000 mls CONT JYOTSNA Administration Dextrose/Sodium Chloride 1,000 mls @ 125 mls/hr 02/24/18 11:00 02/28/18 07:52 D5w 1/2 Ns IV 08/23/18 10:59 1,000 mls CONT JYOTSNA Administration Clindamycin Phosphate/Dextrose 50 mls @ 100 mls/hr 02/28/18 12:51 02/28/18 13 :53 Cleocin 900 Mg (Premix) IV 02/28/18 13:20 50 mls ONCALL ONE Administration Protocol Lactated Ringer's 1,000 mls @ 0 mls/hr 02/28/18 13:03 02/28/18 17:16 Lr IV 02/28/18 13:04 Not Given ONCE ONE Per Protocol Lactated Ringer's 500 mls @ 0 mls/hr 02/28/18 15:19 Lr IV 02/28/18 16:20 PRN PRN PACU, Nausea/Vomiting Post-Op Wide Open Iopamidol Confirm 02/22/18 15:54 Isovue-300 Administered 02/22/18 15:55 Dose 100 ml .ROUTE .STK-MED ONE Ketorolac Tromethamine 30 mg 02/27/18 07:52 02/27/18 08:06 Toradol IVP 02/27/18 07:53 30 mg ONCE ONE Administration Labetalol HCl 5 - 10 mg 02/28/18 15:19 Trandate Injection IVP 02/28/18 16:20 Q10M PRN PACU, Hypertension Lidocaine HCl Confirm 02/28/18 14:00 Lidocaine Hcl 2% Administered 02/28/18 14:01 Dose 100 mg .ROUTE .STK-MED ONE Methylprednisolone Sodium Succinate 40 mg 02/22/18 17:44 02/22/18 18:04 Solu-Medrol IVP 02/22/18 17:45 40 mg EDNOW ONE Administration Methylprednisolone Sodium Succinate 40 mg 02/23/18 02:00 02/26/18 10:08 Solu-Medrol IVP 08/22/18 01:59 40 mg Q8H JYOTSNA Administration Metoclopramide HCl 10 mg 02/28/18 15:19 Reglan Injection IVP 02/28/18 16:20 ONCE PRN PACU, Nausea/Vomiting Morphine Sulfate 1 - 4 mg 02/28/18 15:19 Morphine IVP 02/28/18 16:19 Q10M PRN PACU, PAIN Naloxone HCl 0.1 mg 02/28/18 15:19 Narcan IVP 02/28/18 16:19 Q2M PRN PACU Resp Rate <10/min Neostigmine Methylsulfate Confirm 02/28/18 15:16 Neostigmine Methylsulfate Administered 02/28/18 15:17 Dose 10 mg .ROUTE .STK-MED ONE Ondansetron HCl 4 mg 02/22/18 17:12 02/22/18 17:20 Zofran IVP 02/22/18 17:13 4 mg EDNOW ONE Administration Ondansetron HCl Confirm 02/28/18 13:59 Zofran Administered 02/28/18 14:00 Dose 4 mg .ROUTE .STK-MED ONE Ondansetron HCl 2 - 4 mg 02/28/18 15:19 Zofran IVP 02/28/18 16:20 Q10M PRN PACU, Nausea/Vomiting Oxycodone HCl 5 - 10 mg 02/28/18 15:19 Oxycodone Ir PO 02/28/18 16:20 Q4HRS PRN PACU, Pain Severe Pantoprazole Sodium 40 mg 02/23/18 09:00 02/26/18 10:17 Protonix PO 08/22/18 08:59 Not Given DAILY JYOTSNA Phenylephrine HCl Confirm 02/28/18 14:18 Neosynephrine Administered 02/28/18 14:19 Dose 1,000 mcg .ROUTE .STK-MED ONE Phenylephrine HCl 100 mcg 02/28/18 15:19 Neosynephrine IVP 02/28/18 16:20 Q2M PRN PACU, Hypotension Promethazine HCl 6.25 - 12.5 mg 02/28/18 15:19 Phenergan IVP 02/28/18 16:20 Q5M PRN PACUNausea/Vomiting, Unable PO Propofol Confirm 02/28/18 14:00 Diprivan 10 Mg/Ml (Premix) Administered 02/28/18 14:01 Dose 500 mg IV .STK-MED ONE Rocuronium [place] Confirm 02/28/18 13:59 Zemuron Administered 02/28/18 14:00 Dose 50 mg .ROUTE .STK-MED ONE Throat Lozenges 1 ea 02/27/18 07:52 Cepacol Lozenge PO 08/26/18 07:51 PRN PRN Sore Throat Physical Exam - Physical Exam General Appearance: alert, no apparent distress EENT: other (NG in place) Respiratory: lungs clear, normal breath sounds Cardiac/Chest: regular rate, rhythm Abdomen: soft Skin: normal color, warm/dry Neuro/Psych: alert, normal mood/affect, oriented x 3 ICD10 Worksheet Patient Problems: Problems Problem Status Onset Bowel obstruction Acute Crohns disease Acute
--- NOTE | 2018-03-01 09:20 | HOSPPROG ---
Hospitalist Progress Note Assessment/Plan: Natalio Gastelum is a 37-year-old male who was diagnosed with Crohn's in 2016. In the past he was noted to have a fistula and abscess that required surgery and a washout and did not have any resection. He had a recurrence of a right lower quadrant abscess 4 months later which was treated with percutaneous drain. Since then he has been on Humira weekly and had been doing well. He presented to the emergency room with bloating and nausea and vomiting. Prior to this admission, he had been treated steroids and his abdominal pain has varied. * small-bowel obstruction -s/p laparotomy w lysis of adhesions on 02/28 -doing much better today -increased fluids to 150 ml/hour due to NG output *ileus -not passing flatus, but has hypoactive bowel sounds * Initial concern for acute Crohn's disease flare. -was initially treated w steroids, now stopped *Plan: reviewed patient's care w Dr Gibson. Recommendation is no steroids, no Humira for a few weeks. will increase IV fluids and check labs in the morning. Subjective: Natalio is having some abdominal pain and prefers to avoid narcotics. Objective: Vital Signs Temp Pulse Resp BP Pulse Ox 36.9 C 95 16 107/68 95 03/01/18 08:26 03/01/18 08:26 03/01/18 08:26 03/01/18 08:26 03/01/18 08:26 Laboratory Results 03/01/18 04:50 03/01/18 04:50 02/28/18 03/01/18 03/02/18 05:59 05:59 05:59 Intake Total 2200 4700 Output Total 2100 900 Balance 100 3800 - Physical Exam Constitutional: appears nourished Eyes: PERRL Ears, Nose, Mouth, Throat: hearing normal Cardiovascular: regular rate and rhythym Respiratory: no respiratory distress Gastrointestinal: other (dressings on abd dry and intact), No normoactive bowel sounds (hypoactive) Skin: warm, normal color Musculoskeletal: full muscle strength Neurologic: AAOx3 Psychiatric: interacting appropriately ICD10 Worksheet Patient Problems: Problems Problem Status Onset Bowel obstruction Acute Crohns disease Acute
[2018-03-01] MEDS: CEPACOL LOZENGE PO PRN ×2 (09:46→22:30)
--- NOTE | 2018-03-01 10:39 | SOAPPROG ---
SOAP Progress Note Assessment/Plan: Assessment/Plan: 37 Y M c hx Crohn's disease, +abdominal surgery for fistula and abscess, no resection. Admitted with SBO. Has been on steroids during this stay. s/p laparotomy with lysis of adhesions, POD#1. No resection needed at time of surgery. Adhesions taken down. No gross evidence of active Crohn's at surgery. D/w'ed GI. Overall doing well. Ileus--has bowel sounds. Continue NGT, IVF, pain medicines, routine post op care. D/c umana catheter. OOB, ambulate. Seen and examined with Dr. Low. S: pain controlled. slept ok. no flatus, no N/V. O: alert, nad ng in place, mmm, no jaundice ctab rrr abd soft, appropriately TTP, +BS, inc well dressed, no saturation. ext: no edema 03/01/18 10:36 Objective: Vital Signs Temp Pulse Resp BP Pulse Ox 36.9 C 95 16 107/68 95 03/01/18 08:26 03/01/18 08:26 03/01/18 08:26 03/01/18 08:26 03/01/18 08:26 Laboratory Results 03/01/18 04:50 03/01/18 04:50 02/28/18 03/01/18 03/02/18 05:59 05:59 05:59 Intake Total 2200 4700 Output Total 2100 900 Balance 100 3800 ICD10 Worksheet Patient Problems: Problems Problem Status Onset Bowel obstruction Acute Crohns disease Acute
--- NOTE | 2018-03-01 17:31 | ASMTCMCOM ---
CM Note CM Note Notes: Plan remains the same, pt will dc home when medically stable. CM available for any changes. DC Plan: Independent Date Signed: 03/01/2018 05:31 PM Electronically Signed By:Margoth Doss RN
[2018-03-01] MEDS: METOCLOPRAMIDE 10 MG/2 ML VIAL IVP PRN (19:20)
[2018-03-01] MEDS: KETOROLAC 15 MG/1 ML SDV IVP PRN (22:04)
[2018-03-01] MEDS: LORazepam 2 MG/ML INJ IVP PRN (22:04)
[2018-03-01] MEDS: MELATONIN 3 MG TAB PO SCH (22:39)
[2018-03-02] MEDS: HYDROmorphone HCL/NS 0.5 MG/ML SYR IVP PRN ×5 (00:48→23:04)
[2018-03-02 05:15] LABS: PLATELET COUNT 295 10^3/uL (150-400)
[2018-03-02] MEDS: NS 1,000 ML IV SCH ×3 (05:48→17:51)
[2018-03-02] MEDS: PANTOPRAZOLE SODIUM 40 MG VIAL IVP SCH (08:23)
[2018-03-02] MEDS: CEPACOL LOZENGE PO PRN (08:33)
--- NOTE | 2018-03-02 08:49 | SOAPPROG ---
SOAP Progress Note Assessment/Plan: Assessment/Plan: - 37yo M s/p ex-lap, adhesiolysis for SBO - VSS, HDS - NGT still dark, 200cc overnight. Patient passing flatus. Has minimal to no bowel sounds for me - abdomen soft, incision clean, some shadowing centrally - pain controlled - Plan for NGT clamp trial, if appropriate will dc. - cont ambulation, IS 03/02/18 08:48 Subjective: fells well, passing flatus, wants NGT out Objective: Vital Signs Temp Pulse Resp BP Pulse Ox 37.1 C 95 16 120/79 95 03/02/18 07:41 03/02/18 07:41 03/02/18 07:41 03/02/18 07:41 03/02/18 07:41 Laboratory Results 03/02/18 04:28 03/02/18 04:28 03/01/18 03/02/18 03/03/18 05:59 05:59 05:59 Intake Total 4700 Output Total 900 1450 Balance 3800 -1450 ICD10 Worksheet Patient Problems: Problems Problem Status Onset Bowel obstruction Acute Crohns disease Acute
--- NOTE | 2018-03-02 13:59 | SOAPPROG ---
SOAP Progress Note Assessment/Plan: Assessment/Plan: PM rounds - feels much better with NGT out - has more bowel sounds - cont sips and chips for now - ok to shower - if does well overnight likely advance diet in the AM - Pain well controlled. 03/02/18 08:48 03/02/18 13:58 Subjective: happy to have NGT out Objective: Vital Signs Temp Pulse Resp BP Pulse Ox 37.0 C 93 18 134/85 H 98 03/02/18 11:22 03/02/18 11:22 03/02/18 11:22 03/02/18 11:22 03/02/18 11:22 Laboratory Results 03/02/18 04:28 03/02/18 04:28 03/01/18 03/02/18 03/03/18 05:59 05:59 05:59 Intake Total 4700 Output Total 900 1450 700 Balance 9750 -1450 -700 ICD10 Worksheet Patient Problems: Problems Problem Status Onset Bowel obstruction Acute Crohns disease Acute
--- NOTE | 2018-03-02 14:35 | HOSPPROG ---
Hospitalist Progress Note Assessment/Plan: Natalio Gastelum is a 37-year-old male who was diagnosed with Crohn's in 2016. In the past he was noted to have a fistula and abscess that required surgery and a washout and did not have any resection. He had a recurrence of a right lower quadrant abscess 4 months later which was treated with percutaneous drain. Since then he has been on Humira weekly and had been doing well. He presented to the emergency room with bloating and nausea and vomiting. Prior to this admission, he had been treated steroids and his abdominal pain has varied. * small-bowel obstruction -s/p laparotomy w lysis of adhesions on 02/28 -doing much better today -NGT out -cont supportive care -possible advance diet in am *ileus -walking, passing gas * Initial concern for acute Crohn's disease flare. -was initially treated w steroids, now stopped *Plan:cont supportive care advance diet when ok with surgery Subjective: Feeling much better. Happy to have NGT out. Objective: Vital Signs Temp Pulse Resp BP Pulse Ox 37.0 C 93 18 134/85 H 98 03/02/18 11:22 03/02/18 11:22 03/02/18 11:22 03/02/18 11:22 03/02/18 11:22 Laboratory Results 03/02/18 04:28 03/02/18 04:28 03/01/18 03/02/18 03/03/18 05:59 05:59 05:59 Intake Total 4700 Output Total 900 1450 700 Balance 3800 -1450 -700 - Physical Exam Constitutional: no apparent distress, appears nourished Eyes: PERRL, anicteric sclera Ears, Nose, Mouth, Throat: moist mucous membranes, hearing normal Cardiovascular: No JVD, No edema Respiratory: no respiratory distress, no rales or rhonchi, clear to auscultation Gastrointestinal: normoactive bowel sounds, tenderness, No ascites Skin: warm, normal color Musculoskeletal: full muscle strength, normal joint ROM Neurologic: AAOx3 Psychiatric: interacting appropriately, not anxious, not encephalopathic ICD10 Worksheet Patient Problems: Problems Problem Status Onset Bowel obstruction Acute Crohns disease Acute
[2018-03-02] MEDS: ACETAMINOPHEN 325 MG TAB PO PRN (19:47)
[2018-03-02] MEDS: diphenhydrAMINE 25 MG CAP PO PRN (22:00)
[2018-03-02] MEDS: MELATONIN 3 MG TAB PO SCH (22:01)
[2018-03-02] MEDS: METOCLOPRAMIDE 10 MG/2 ML VIAL IVP PRN (22:42)
[2018-03-03] MEDS: NS 1,000 ML IV SCH ×2 (00:46→07:29)
[2018-03-03] MEDS: HYDROmorphone HCL/NS 0.5 MG/ML SYR IVP PRN ×2 (03:40→05:54)
[2018-03-03 07:17] VITALS: BP 129/85
[2018-03-03] MEDS: PANTOPRAZOLE SODIUM 40 MG VIAL IVP SCH ×2 (08:47→08:52)
--- NOTE | 2018-03-03 10:36 | HOSPPROG ---
Hospitalist Progress Note Assessment/Plan: Natalio Gastelum is a 37-year-old male who was diagnosed with Crohn's in 2016. In the past he was noted to have a fistula and abscess that required surgery and a washout and did not have any resection. He had a recurrence of a right lower quadrant abscess 4 months later which was treated with percutaneous drain. Since then he has been on Humira weekly and had been doing well. He presented to the emergency room with bloating and nausea and vomiting. Prior to this admission, he had been treated steroids and his abdominal pain has varied. * small-bowel obstruction -s/p laparotomy w lysis of adhesions on 02/28 -doing much better today -NGT out -cont supportive care -advance diet in am *ileus -walking, passing gas -BM last evening * Initial concern for acute Crohn's disease flare. -was initially treated w steroids, now stopped *Plan:cont supportive care advance diet when ok with surgery Subjective: Feeling better. Passing gas. Objective: Vital Signs Temp Pulse Resp BP Pulse Ox 36.6 C 70 16 129/85 H 97 03/03/18 07:17 03/03/18 07:17 03/03/18 07:17 03/03/18 07:17 03/03/18 07:17 Laboratory Results 03/02/18 04:28 03/02/18 04:28 03/02/18 03/03/18 03/04/18 05:59 05:59 05:59 Intake Total 200 4300 Output Total 1450 2975 Balance -1450 -2775 4300 - Physical Exam Constitutional: no apparent distress, appears nourished Eyes: PERRL, anicteric sclera Ears, Nose, Mouth, Throat: moist mucous membranes, hearing normal Cardiovascular: No JVD, No edema Respiratory: no respiratory distress, no rales or rhonchi Gastrointestinal: normoactive bowel sounds, tenderness, No ascites Skin: warm, normal color Musculoskeletal: full muscle strength, normal joint ROM, no joint effusions Neurologic: AAOx3 Psychiatric: interacting appropriately, not anxious, not encephalopathic, thought process linear ICD10 Worksheet Patient Problems: Problems Problem Status Onset Bowel obstruction Acute Crohns disease Acute
[2018-03-03] MEDS ORDERED: HYDROmorphONE/DILAUDID 2 MG TAB PO PRN (11:10)
[2018-03-03] MEDS ORDERED: HYDROmorphone HCL/NS 0.5 MG/ML SYR IVP PRN (11:10)
[2018-03-03] MEDS: ACETAMINOPHEN 325 MG TAB PO PRN (11:47)
[2018-03-03] MEDS: CEPACOL LOZENGE PO PRN (14:21)
--- NOTE | 2018-03-03 14:50 | PDDCSUM ---
Discharge Summary Discharge Summary: DISCHARGE SUMMARY Date of Admission February 22 Date of Discharge March 03 DISCHARGE DIAGNOSES -small-bowel obstruction secondary to adhesions HOSPITAL COURSE The patient was admitted from the ED with CT scan findings small-bowel obstruction. He was initially managed conservatively and it was initially thought that this was a Crohn's flare and he was given doses of steroids. The obstruction persisted, surgery was subsequently involved. Small-bowel follow- through series was performed which showed no contrast in the colon, the patient was subsequently taken to the operating room on TuesdayFebruary 28 where he had an exploratory laparotomy with lysis of adhesions. At that time, he had a couple large adherent adhesions in the left lower quadrant which were successfully lysed, he had no active signs of Crohn's at that time. His hospital course was subsequently uneventful, he had a nasogastric tube which was removed, he was tolerating regular diet and having appropriate return of bowel function on the day of discharge. He was subsequently discharged home in stable condition on the afternoon of the . EXAM ON DAY OF DISCHARGE Neuro: Pain well controlled Pulm: Stable on room air CV: Hemodynamically stable Abdomen: Soft, nondistended, minimally tender. Bowel sounds positive, midline incision clean dry and intact Renal: Voiding Heme: Stable Id: Afebrile DISCHARGE MEDICATIONS - [place] as needed for pain - his Humira was subsequently stopped, he will follow up with his hat maker to discuss timing of restarting this. DISPOSITION - home FOLLOW UP Follow up with me in the office in 10-14 days for a general post-operative visit Follow up with Dr. Saucedo within the next 3-4 weeks to discuss Crohn's management
--- NOTE | 2018-03-06 19:14 | POSTANESTH ---
Post Anesthetic Evaluation Cardiovascular Status: Normal, Stable Respiratory Status: Normal, Stable Level of Consciousness/Mental Status: Can Participate in Eval Pain Control: Adequate, Prn Tx Ordered Nausea/Vomiting Control: Adequate, Prn Tx Ordered Complications Possibly Related to Anesthesia: None Noted (visited PACU 02/28/18)
== END 2018-03-03 15:45 | disposition home or self-care (01) | DRG 230 ==
LOC: OBSVTOIN 17:45 → UNDOADMOB 17:45 → F3E 18:08
PROVIDERS: ADMIT Internal Medicine; ATTEND Internal Medicine
PROC: 0DN80ZZ Release Small Intestine, Open Approach (ICD-10-PCS; principal; 2018-02-28 13:30)
PROC: 0DQ80ZZ Repair Small Intestine, Open Approach (ICD-10-PCS; principal; 2018-02-28 13:30)
DX: K56.51 Intestinal adhesions [bands], with partial obstruction (principal); K50.10 Crohn's disease of large intestine without complications; Z53.31 Laparoscopic surgical procedure converted to open procedure; Z72.0 Tobacco use
CPT/HCPCS: 96374; C1765; J1100; J1170; J1200; J1650; J1885; J2001; J2060; J2370; J2405; J2550; J2704; J2765; J2920; J3010; Q9967

== ENCOUNTER → 2018-04-21 | Outpatient (CLI) | payer MEDICAID ==
[~2018-04-21] MED LIST changes: +GADOBUTROL 10 ML VIAL IVP ONE; +GLUCAGON HCL 0.3 MG in SYRINGE 0.3 ML IVP ONE; -IOPAMIDOL (ISOVUE-300) 100 ML BTL ONE
== END ==
LOC: FIMAGING 11:36
PROVIDERS: ATTEND Physician Assistant
DX: K50.813 Crohn's disease of both small and large intestine with fistula (principal)
CPT/HCPCS: A9585; J1610

== ENCOUNTER → 2018-12-27 | Outpatient (CLI) | payer MEDICAID | LOC: FIMAGING 09:47 | PROVIDERS: ATTEND Internal Medicine Gastroenterology | DX: K50.813 Crohn's disease of both small and large intestine with fistula (principal) | CPT/HCPCS: A9585; J1610 ==